=== PATIENT | female | born 1960 | race Caucasian/White ===

== ENCOUNTER → 2017-11-05 18:53 | Outpatient (CLI) | payer OTHER, SELFPAY ==
[2017-11-11 15:51] LABS: HPV Reflexed? NOT INDICATED
== END ==
PROVIDERS: Family Provider Student in an Organized Health Care Education/Training Program; PCP Student in an Organized Health Care Education/Training Program; Visit Provider Obstetrics & Gynecology
DX: Z12.4 Encounter for screening for malignant neoplasm of cervix (principal)
CPT/HCPCS: 88175; G0145

== ENCOUNTER → 2017-11-12 11:10 | Outpatient (CLI) | payer OTHER, SELFPAY ==
--- NOTE | 2017-11-12 11:11 | HPBD_ITS ---
STUDY: DUAL ENERGY X-RAY ABSORPTIOMETRY / DXA REASON FOR EXAM: Female, 57 years old. The patient is postmenopausal. History of breast cancer. No loss of height. TECHNIQUE: Bone Mineral Density (BMD) measurements of lumbar spine and bilateral hips were obtained. COMPARISON: None. FINDINGS: Lumbar Spine (L1-L4): g/cm2 (1.217) / T-score (0.3) / Z-score (1.1) Findings are suggestive of normal bone density with a low fracture risk. Left Femur Total: g/cm2 (1.065) / T-score (0.5) / Z-score (1.1) Left Femoral Neck: g/cm2 (1.010) / T-score (-0.2) / Z-score (0.8) Right Femur Total: g/cm2 (1.028) / T-score (0.2) / Z-score (0.8) Right Femoral Neck: g/cm2 (0.919) / T-score (-0.9) / Z-score (0.2) HPBD/Dexa Bone Density Study (HP) IMPRESSION: The patient is considered normal as outlined below according to World [place] Organization (WHO) criteria with a low fracture risk. Reference Information: The T-score is the number of standard deviations above or below the standard which is normal for young adults at their peak bone mineral density. The World Health Organization (WHO) interprets the T-scores as follows: Above -1 Normal bone density Between -1 and -2.5 Osteopenia Equal to / or below -2.5 Osteoporosis As a practical clinical guideline, osteopenia may be graded as follows: Mild -1 through -1.5 Moderate -1.6 through -2.0 Severe -2.1 through -2.4 The Z-score is the number of standard deviations above or below age-matched controls. A Z-score of less than -1.5 would be considered abnormal. References: 1. NIH Osteoporosis and Related Bone Diseases http://www.osteo.org 2. International Society for Clinical Densitometry http://www.iscd.org 3. National Osteoporosis Foundation http://www.nof.org Electronically Signed: Jac Eduardo MD at 8:24 EST Tel [phone], Service support ,
== END ==
PROVIDERS: Family Provider Student in an Organized Health Care Education/Training Program; PCP Student in an Organized Health Care Education/Training Program; Visit Provider Obstetrics & Gynecology
DX: Z13.820 Encounter for screening for osteoporosis (principal); Z78.0 Asymptomatic menopausal state; Z85.3 Personal history of malignant neoplasm of breast
CPT/HCPCS: 77080

== ENCOUNTER → 2017-12-25 16:25 | Outpatient (CLI) | payer OTHER, SELFPAY ==
--- NOTE | 2017-12-25 16:27 | BI_ITS ---
MAMMOGRAPHY - BILATERAL SCREENING REASON FOR EXAM: Female, 57 years old. Routine annual screening examination. PERTINENT HISTORY: Personal history of breast cancer. Prior right lumpectomy with radiation treatment. TECHNIQUE: Digital bilateral breast gorge (3D mammographic acquisition) in the CC and MLO projections. 2-D mediolateral oblique (MLO) and craniocaudad (CC) views of both breasts were obtained. CAD: Full Field Digital Mammography with Computer Added Detection was performed. COMPARISON: Comparison is made with prior study dated December 24, 2016 and December 21, 2059 FINDINGS: Breast Composition: The breasts are heterogeneously dense, which may obscure small masses. There are no dominant masses or suspicious calcifications. Residual architecture distortion is seen in the upper outer aspect of the right breast secondary to prior lumpectomy and postsurgical scarring. This is unchanged. No new abnormality is seen. No other significant abnormalities are identified. There has been no significant change since the prior study. BI/SCREENING MAMM (CAD), BILAT IMPRESSION: Stable bilateral screening mammogram. Yearly follow-up mammogram recommended. (A) ASSESSMENT CATEGORY: BIRADS Category 2: Benign. A letter regarding these results will be sent to the patient by the facility within 30 days. Approximately 10% of breast cancers are not detected by mammography. A normal mammogram should not delay biopsy of a clinically suspicious abnormality. [id number] Electronically Signed: Jac Eduardo MD at 8:45 EDT Tel [phone], Service support ,
== END ==
PROVIDERS: Family Provider Student in an Organized Health Care Education/Training Program; PCP Student in an Organized Health Care Education/Training Program; Visit Provider Internal Medicine Hematology & Oncology
DX: Z12.31 Encounter for screening mammogram for malignant neoplasm of breast (principal)
CPT/HCPCS: 77063; 77067

== ENCOUNTER → 2018-03-30 06:02 | Outpatient (CLI) | payer OTHER, SELFPAY ==
[2018-03-30 07:15] LABS: Hematocrit 43.6 % (37-47); Hemoglobin 13.8 g/dl (12.0-15.0); Mean Corp Hgb Conc 31.7 g/gl (32-36); Mean Corpuscular Hgb 28.5 pg (27.0-32.0); Mean Corpuscular Volume 90.1 fL (81-99); Platelet Count 174 K/mm3 (150-450); RBC Distribution Width CV 13.5 % (11.6-14.6); RBC Distribution Width SD 44.5 fl (35.1-43.9); Red Blood Count 4.84 M/mm3 (4.2-5.4); White Blood Count 5.3 K/mm3 (4.4-11.0)
[2018-03-30 07:19] LABS: Scan Indicated on CBC? Y/N NO
[2018-03-30 07:40] LABS: ALB/GLOB Ratio 1.1 RATIO (0.9-2.4); AST(SGOT) 20 U/L (15-37); Alanine Aminotransfer ALT/SGPT 36 U/L (13-56); Albumin, Serum 3.9 g/dL (3.2-5.0); Alkaline Phosphatase 83 U/L (45-117); Anion Gap 6 (5-15); BUN 13 mg/dL (7-18); BUN/Creat Ratio 16.1 RATIO (10-20); Calcium,Total 8.4 mg/dL (8.5-10.1); Chloride 107 mmol/L (98-107); Cholesterol 176 mg/dL (200); Creatinine, Serum 0.81 mg/dL (0.55-1.02); EST Glomerular Filtration Rate 78 mL/min (>60); Est Glom Filt Rate - Afr Amer 94 mL/min (>60); Globulin 3.4 g/dL (2.2-4.2); Glucose 89 mg/dL (74-106); High Density Lipoprotein 72 mg/dL; Potassium 4.2 mmol/L (3.5-5.1); Protein, Total 7.3 g/dL (6.4-8.2); Sodium Level 141 mmol/L (136-145); T4 Free Direct 0.98 ng/dL (0.76-1.46); Thyroid Stim Hormone (TSH) 1.53 uIU/mL (0.358-3.74); Triglycerides 63 mg/dL; Very Low Density Lipoprotein 13 mg/dL (5-40)
[2018-03-30 09:54] LABS: T3 Total - Triiodothyronine 1.01 ng/mL (0.6-1.81)
== END ==
PROVIDERS: Family Provider Student in an Organized Health Care Education/Training Program; PCP Student in an Organized Health Care Education/Training Program; Visit Provider Student in an Organized Health Care Education/Training Program
DX: Z00.00 Encounter for general adult medical examination without abnormal findings (principal)
CPT/HCPCS: 36415; 80053; 80061; 84439; 84443; 84480; 85027

== ENCOUNTER → 2018-07-09 08:21 | Outpatient (CLI) | payer OTHER, SELFPAY ==
[2018-07-09 08:44] LABS: Absolute Lymphocyte Count 2.04 X10^3/ul (0.83-4.51); Absolute Neutrophil Count 3.7 X10^3/uL (2.0-7.7); Basophil# 0.03 X10^3/uL; Basophil% 0.5 % (0-1); Eosinophil# 0.05 X10^3/uL; Eosinophils% 0.8 % (0-5); Hematocrit 43.5 % (37-47); Lymphocyte # 2.04 X10^3/ul (4.0); Mean Corp Hgb Conc 32.2 g/gl (32-36); Mean Corpuscular Hgb 29.2 pg (27.0-32.0); Mean Corpuscular Volume 90.8 fL (81-99); Mean Platelet Vol. 10.2 fl (6.2-12.0); Monocyte# 0.31 X10^3/uL; Neutrophil # 3.74 X10^3/uL (2.7-7.7); Neutrophil % 60.5 % (47-70); POSITIVE COUNT NO; POSITIVE DIFFERENTIAL NO; POSITIVE MORPHOLOGY NO; Platelet Count 190 K/mm3 (150-450); RBC Distribution Width CV 13.3 % (11.6-14.6); RBC Distribution Width SD 43.5 fl (35.1-43.9); Red Blood Count 4.79 M/mm3 (4.2-5.4); White Blood Count 6.2 K/mm3 (4.4-11.0)
[2018-07-09 08:59] LABS: ALB/GLOB Ratio 1.3 RATIO (0.9-2.4); AST(SGOT) 18 U/L (15-37); Alanine Aminotransfer ALT/SGPT 32 U/L (13-56); Albumin, Serum 4.1 g/dL (3.2-5.0); Alkaline Phosphatase 81 U/L (45-117); Anion Gap 5 (5-15); BUN 15 mg/dL (7-18); BUN/Creat Ratio 14.9 RATIO (10-20); Calcium,Total 8.8 mg/dL (8.5-10.1); Chloride 109 mmol/L (98-107); Creatinine, Serum 1.01 mg/dL (0.55-1.02); EST Glomerular Filtration Rate 60 mL/min (>60); Est Glom Filt Rate - Afr Amer 73 mL/min (>60); Globulin 3.2 g/dL (2.2-4.2); Glucose 79 mg/dL (74-106); Potassium 4.2 mmol/L (3.5-5.1); Protein, Total 7.3 g/dL (6.4-8.2); Sodium Level 144 mmol/L (136-145)
== END ==
PROVIDERS: Surgery; Family Provider Student in an Organized Health Care Education/Training Program; PCP Student in an Organized Health Care Education/Training Program; Referring Provider Surgery; Visit Provider Surgery
DX: R10.9 Unspecified abdominal pain (principal)
CPT/HCPCS: 36415; 80053; 85025

== ENCOUNTER → 2018-07-10 08:30 | Outpatient (CLI) | payer OTHER, SELFPAY ==
--- NOTE | 2018-07-10 08:31 | US_ITS ---
STUDY: ABDOMINAL ULTRASOUND - RIGHT UPPER QUADRANT REASON FOR VISIT: Female, 58 years old. Abdominal pain. TECHNIQUE: Ultrasound evaluation of the right upper quadrant was performed with real-time and static haas-scale imaging. TECHNICAL QUALITY: Adequate. COMPARISON: Comparison is made with prior sonogram dated January 02, 2015. FINDINGS: Liver: The liver measures 14.9 cm. There is increased echogenicity consistent with fatty infiltration. The bile ducts are within normal limits. There is hepatic color flow. The direction of portal flow is hepatopetal. There is a 1.7 cm x 2 cm x 0.9 cm cyst in the left lobe of the liver with low level echoes within it. This may represent either hemorrhagic cyst or a cyst filled with a proteinaceous material. Gallbladder: Normal distended gallbladder. The gallbladder wall measures 2.7 mm. There is a negative sonographic Moses's sign. There is no pericholecystic fluid. There are no gallstones. Common Bile Duct (C.B.D.): The common bile duct measures 3.6 mm. Pancreas: Normal size of the head, body and tail of the pancreas. There is normal echogenicity of the pancreas. There is no demonstrated pancreatic mass or cyst. Right Kidney: Normal size of the right kidney. The right kidney measures 9.8 cm x 4.9 cm x 4.3 cm. Normal renal cortex. The right cortex measures 1.4 cm. There is no demonstrated renal mass or cyst. There is no right hydronephrosis. US/Gallbladder IMPRESSION: Fatty infiltration of the liver. 1.7 cm x 2 cm x 0.9 cm cyst with low-level echoes in the left lobe of the liver. Electronically Signed: Jac Eduardo MD at 10:20 EDT Tel [phone], Service support ,
== END ==
PROVIDERS: Family Provider Student in an Organized Health Care Education/Training Program; PCP Student in an Organized Health Care Education/Training Program; Referring Provider Surgery; Visit Provider Surgery
DX: R10.9 Unspecified abdominal pain (principal)
CPT/HCPCS: 76705

== ENCOUNTER → 2018-09-14 08:58 | Outpatient (CLI) | payer OTHER, SELFPAY ==
--- NOTE | 2018-09-14 09:02 | MRI_ITS ---
STUDY: MRI BRAIN WITH AND WITHOUT CONTRAST REASON FOR EXAM: Female, 58 years old. Facial weakness. Left tongue numbness. Diagnosed with shingles in left ear on 09/10/2018. TECHNIQUE: Standardized multiplanar fat and water weighted pulse sequences were obtained. 7 ml of Gadavist contrast material was administered intravenously for the contrast portion of the examination. COMPARISON: None. FINDINGS: No restricted diffusion to suspect acute or subacute ischemic infarct. Normal size of the ventricles and extra-axial spaces for the patient's age. Nonspecific T2 FLAIR hyperintensity foci in both frontal opercula (series 6, image 14). Normal remaining white matter of both cerebral hemispheres. Normal bilateral basal ganglia. Normal thalami. There is no extra-axial fluid accumulation. Normal flow voids within the major intracranial circulation suggesting patency by spin echo criteria. Normal venous enhancement. There is no enhancing intra-axial or extra-axial abnormality. Normal sella turcica, pituitary gland, infundibular stalk, optic chiasm and hypothalamus. Normal tectal plate and pineal gland. Normal midbrain, rodrigue and medulla. Normal cerebellum. Normal basal cisterns. Normal bilateral temporal bones. Normal bilateral internal auditory canals. No demonstrated orbital abnormality, within the constraints of a routine brain study. Normal visualized paranasal sinuses. Normal calvarium and skull base. Normal visualized soft tissue structures. Normal visualized upper cervical spine. MRI/Brain W/WO Contrast IMPRESSION: 1. No MRI evidence of acute or subacute ischemic infarct. 2. Normal MRI of the internal auditory canals with and without contrast. 3. Nonspecific T2 FLAIR hyperintensity foci in both frontal opercula. Possibilities include migraine-related changes, reversible vasoconstrictive syndrome, microvascular disease and vasculitis. 4. No enhancing lesions extra-axially and intraaxially. Electronically Signed: Bean Levi MD at 10:13 EST , Service support ,
== END ==
PROVIDERS: Family Provider Student in an Organized Health Care Education/Training Program; PCP Student in an Organized Health Care Education/Training Program; Referring Provider Otolaryngology; Visit Provider Otolaryngology
DX: R29.810 Facial weakness (principal); R20.2 Paresthesia of skin
CPT/HCPCS: 70553; A9585

== ENCOUNTER → 2018-09-24 10:06 | Outpatient (CLI) | payer OTHER, SELFPAY ==
[2018-09-24 10:53] LABS: Anion Gap 10 (5-15); BUN 15 mg/dL (7-18); BUN/Creat Ratio 15.9 RATIO (10-20); Calcium,Total 8.4 mg/dL (8.5-10.1); Chloride 104 mmol/L (98-107); Creatinine, Serum 0.94 mg/dL (0.55-1.02); EST Glomerular Filtration Rate 65 mL/min (>60); Est Glom Filt Rate - Afr Amer 79 mL/min (>60); Glucose 108 mg/dL (74-106); Magnesium 2.2 mg/dL (1.6-2.6); Potassium 3.4 mmol/L (3.5-5.1); Sodium Level 138 mmol/L (136-145)
== END ==
PROVIDERS: Family Provider Student in an Organized Health Care Education/Training Program; PCP Student in an Organized Health Care Education/Training Program; Visit Provider Otolaryngology
DX: R11.10 Vomiting, unspecified (principal)
CPT/HCPCS: 36415; 80048; 83735

== ENCOUNTER 2018-10-17 18:30 | Observation (INO) | payer OTHER, SELFPAY ==
[2018-10-17 18:31] VITALS: BP 148/75; PULSE 81; RESP 16; TEMP 36.6; O2SAT 99; BMI 23.8
--- NOTE | 2018-10-17 20:00 | CT_ITS ---
STUDY: CT BRAIN WITHOUT CONTRAST REASON FOR EXAM: Female, 58 years old. Dizziness RADIATION DOSAGE (If Supplied By Facility): CTDIvol = ( 44.99 ) mGy, DLP = ( 762.36 ) mGycm TECHNIQUE: Transaxial CT imaging of the brain was performed without administration of intravenous contrast material. Individualized dose optimization techniques were used for this CT. COMPARISON: None. FINDINGS: Normal soft tissue structures. Normal calvarium. There is mild bifrontal haas matter atrophy. The lateral ventricles are normal in size and are symmetric. The third and fourth ventricles are midline. Normal white matter tracts of the cerebral hemispheres. Normal basal ganglia and thalami. Normal brainstem. Normal cerebellum. There is no intracranial hemorrhage. There are no findings of an acute ischemic infarction. Normal visualized paranasal sinuses. CT/Brain/Head without Contrast IMPRESSION: Mild bifrontal haas matter atrophy. There is no intracranial hemorrhage or evidence of acute infarct. Electronically Signed: Sky Longoria MD at 22:06 EST , Service support ,
[2018-10-17] MEDS: MethylPREDNISolone 125 MG/2 ML Vial IV (20:21)
[2018-10-17] MEDS: 0.9% Normal Saline 1,000 ML 999 ML IV (20:21)
[2018-10-17] MEDS: LORazepam 2 MG/ML Syringe 1 MG IV ×2 (20:21→23:00)
[2018-10-17 20:26] LABS: Absolute Lymphocyte Count 1.18 X10^3/ul (0.83-4.51); Absolute Neutrophil Count 9.1 X10^3/uL (2.0-7.7); Basophil# 0.04 X10^3/uL; Basophil% 0.4 % (0-1); Eosinophil# 0.03 X10^3/uL; Eosinophils% 0.3 % (0-5); Hemoglobin 15.4 g/dl (12.0-15.0); Lymphocyte # 1.18 X10^3/ul (4.0); Mean Corp Hgb Conc 32.8 g/gl (32-36); Mean Corpuscular Hgb 29.4 pg (27.0-32.0); Mean Corpuscular Volume 89.9 fL (81-99); Mean Platelet Vol. 10.3 fl (6.2-12.0); Monocyte# 0.35 X10^3/uL; Monocyte% 3.3 % (0-10); Neutrophil # 9.11 X10^3/uL (2.7-7.7); Neutrophil % 84.6 % (47-70); POSITIVE COUNT NO; POSITIVE DIFFERENTIAL NO; POSITIVE MORPHOLOGY NO; Platelet Count 229 K/mm3 (150-450); RBC Distribution Width CV 13.6 % (11.6-14.6); RBC Distribution Width SD 44.5 fl (35.1-43.9); Red Blood Count 5.23 M/mm3 (4.2-5.4); White Blood Count 10.8 K/mm3 (4.4-11.0)
[2018-10-17 20:41] LABS: Anion Gap 8 (5-15); BUN 11 mg/dL (7-18); BUN/Creat Ratio 12.6 RATIO (10-20); Chloride 105 mmol/L (98-107); Creatinine, Serum 0.87 mg/dL (0.55-1.02); EST Glomerular Filtration Rate 72 mL/min (>60); Est Glom Filt Rate - Afr Amer 87 mL/min (>60); Estimated Creatinine Clearance 67.59 ml/min; Glucose 113 mg/dL (74-106); Potassium 3.9 mmol/L (3.5-5.1); Sodium Level 140 mmol/L (136-145)
[2018-10-17 21:35] VITALS: BP 116/71; PULSE 82; RESP 15; O2SAT 94
--- NOTE | 2018-10-17 22:40 | HP.PCM_ITS ---
History of Present Illness Date of Admission: 10/17/18 Chief Complaint: vertigo The patient is a 58 year old F with a PMH of recurrent vertigo, Heath Knox syndrome, hypothyroidism and remote history of breast cancer s/p lumpectomy. She was admitted with a complaint of vertigo started this evening. Vertigo was worse with movement and she does state nausea and vomiting. Of note, patient has been having recurrent vertigo since April 2018 which did not resolve with meclizine. 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 She states at the time, she saw the ENT surgeon and was told that she had some decreased hearing in her right ear. She cannot see whether her hearing has worsened as it sounds the same to her. She denied any fever or chills, any blurred vision, any abnormal movement of her eyes that she has noticed, any chest pain, any abdominal pain, any tingling in her extremities, any diarrhea or vomiting. She did complain of frontal headache which is not new for her. She is being admitted to be managed for recurrent vertigo. [] Past Medical History Past Medical History (Chronic Problems): Chronic Problems (Last Reviewed 12/31/17 @ 16:05 by Blanche Hanks) Cancer of right female breast (Chronic) Medical History: Medical History (Last Reviewed 12/31/17 @ 16:05 by Blanche Hanks) Splenic cyst (Acute) D73.4 Multinodular thyroid (Acute) E04.2 Cancer of right female breast (Chronic) C50.911 D&C History of breast cancer Z85.3 History of hysterectomy Z90.710 Mitral valve prolapse I34.1 Multinodular goiter E04.2 Allergies No Known Allergies Allergy (Verified 10/17/18 18:31) Home Medications: Ambulatory Orders Medication Instructions Recorded Levothyroxine [Synthroid] 25 mcg PO DAILY 12/11/16 Calcium Carbonate [Calcium] 600 mg PO DAILY 12/30/16 Cholecalciferol (Vitamin D3) 1,000 unit PO DAILY 12/30/16 [Vitamin D3] Surgical History: Surgical History (Last Reviewed 12/31/17 @ 16:05 by Blanche Hanks) History of lumpectomy of right breast Z98.890 History of partial mastectomy Z90.10 2006 PARTICAL/MASTECTOMY WITH SENTINEL LYMPH NODE BIOPSY Surgical History: - - right breast lumpectomy-2006 Psychiatric History: No pertinent psych hx Lives: Spouse/ Significant Other Smoking Status: Never smoker - *Family History Maternal Family History: Family History (Last Reviewed 12/31/17 @ 16:05 by Blanche Hanks) Father Family history of hypertension Cancer Grandmother Cancer CVA (cerebral vascular accident) Other Family history of cancer Review of Systems Constitutional: Reports: Malaise, Weakness. Denies: Chills, Fever, Weight Change, Fatigue HEENT: Reports: Head Aches. Denies: Sinus Congestion, Sinus Drainage Cardiovascular: Denies: Chest Pain, Palpitations Respiratory: Denies: Cough, Shortness of breath at rest, Sputum production Gastrointestinal: Denies: Abdominal Pain, Nausea, Vomiting Genitourinary: Denies: Dysuria Musculoskeletal: Denies: Joint Pain, Joint Tenderness Skin: Denies: Rash, Wounds Neurological: Reports: Balance problems - due to vertigo, Headaches. Denies: Blurred vision, Double vision, Change in Speech, Slurred speech, Confusion, Numbness, Tingling Psychiatric: Denies: Anxiety, Depression, Homicidal Ideations, Suicidal Ideations Hematologic/ Lymphatic: Denies: Easy Bruising, Easy Bleeding VTE Information - Inpt Only VTE Present on Admission: No VTE Pharm Prophylaxis ordered?: Yes - Physical Exam General: Alert, Oriented x3, Cooperative, No apparent distress HEENT: Atraumatic, PERRLA, EOMI, Normocephalic Oral: Dry Mucosa Neck: Supple, No JVD, Negative Carotid Bruits Lungs: Clear to auscultation, Normal air movement, No rhonchi, No wheeze, No rales Cardiovascular: Regular rate, Regular Rhythm, Normal S1, Normal S2, No murmurs Abdomen: Bowel Sounds Present, Soft, Non Tender, Non-Distended, No Hepato- splenomegaly Extremities: No clubbing, No cyanosis, No edema, Capillary Refill Less than 3 Seconds Skin: No rashes, No breakdown Musculoskeletal: No Tenderness to Palpation of Joints or Extremities Lymphatic: No Cervical, Supraclavicular, or Inguinal Adenopathy Neurological: Cranial nerves II-XII grossly intact, Deep Tendon Reflexes 2+/4 an d Symmetrical, Neuro grossly intact, Sensory exam intact to light touch and pain, Coordination normal, - - no nystagmus; got very dizzy just with sitting up. Tomi zamarripadayne not attempted o/a of severe dizziness. Psych/Mental Status: Normal Affect, Appropriate, Alert and oriented to time, place, person, mood and affect Vital Signs Temp Pulse Resp BP Pulse Ox 97.9 F 82 15 116/71 94 10/17/18 18:31 10/17/18 21:35 10/17/18 21:35 10/17/18 21:35 10/17/18 21:35 Oxygen Delivery Method Room Air Weight: 148 lb Body Mass Index (BMI) 23.8 Laboratory Tests Past 24 Hrs 10/17/18 10/17/18 20:05 20:05 WBC 10.8 RBC 5.23 Hgb 15.4 H Hct 47.0 MCV 89.9 MCH 29.4 MCHC 32.8 RDW 13.6 RDW Differential 44.5 H Plt Count 229 MPV 10.3 Immature Gran % (Auto) 0.400 Neut % (Auto) 84.6 H Lymph % (Auto) 11.0 L [place] % (Auto) 3.3 Eos % (Auto) 0.3 Baso % (Auto) 0.4 Absolute Neuts (auto) 9.1 H Absolute Lymphs (auto) 1.18 Total Counted Not Reportable Sodium 140 Potassium 3.9 Chloride 105 Carbon Dioxide 27.0 Anion Gap 8 BUN 11 Creatinine 0.87 Estim Creat Clear Calc 67.59 Est GFR (MDRD) Af Amer 87 Est GFR (MDRD) Non-Af 72 BUN/Creatinine Ratio 12.6 Glucose 113 H Calcium 9.[address] 10/17/18 20:00 IMPRESSION: Mild bifrontal haas matter atrophy. There is no intracranial hemorrhage or evidence of acute infarct. Electronically Signed: Sky Longoria MD at 22:06 EST , Service support , Assessment/Plan All Active Problems (Last Reviewed 12/31/17 @ 16:05 by Blanche Hanks) Splenic cyst (Acute) Multinodular thyroid (Acute) 58 y/o female admitted with a complaint of vertigo 1. Recurrent vertigo due to possible BPPV vs vestibular neuritis * recurrent dizziness since April 2018 * recently had [place] Knox syndrome * brain CT was negative. * had MRI done on 09/14/18 which showed no MRI evidence of acute or subacute ischemic infarct, normal MRI of internal auditory canal with and without contrast and nonspecific T2 FLAIR hyperintensity foci in both frontal opercular with possibilities including migraine related changes, reversible vasoconstrictive syndrome, microvascular disease and vasculitis. No enhancing lesions extra-axially or intra-axially. * admit to PCU with telemetry * neurology consult * will defer further imaging as she recently had MRI * IV zofran for nausea * PT/OT consult * PO meclizine * 2. Hypothyroidism: on synthroid DVT prophylaxis: heparin Code Visit OBSV E&M: [id number] Initial observation care L3
--- NOTE | 2018-10-17 22:45 | ED.DCSUM_ITS ---
- ER Visit Summary Date of Service: 10/17/18 Chief Complaint: Dizziness History of Present Illness: The patient is a 58 F with dizziness that started yesterday around 5 PM when she was leaving work. She was eating celery when the symptoms started. Symptoms were worse by standing, walking, and moving. She tried 3 doses of meclizine over the past 24 hours but they are not helping. It is associated with nausea and vomiting as well as bilateral tinnitus. Patient had Heath Knox and shingles in her left ear canal. She was treated by ENT and had an MRI in August 2018. She has had vertigo in the remote past but never this bad. Physical Examination: Afebrile and vital signs unremarkable. HEENT exam unremarkable. Cranial nerves grossly intact. Heart regular. Lungs clear. Skin appears normal without rash. No focal or lateralizing neurologic abnormalities. Test Results: CBC and BMP unremarkable. CT brain showed mild atrophy but nothing acute. Emergency Department Course and Treatment: Patient was treated with Ativan and fluids. Patient's workup was unremarkable. On reevaluation, she had continued symptoms. They were very severe and she was unable to ambulate. She was treated with additional Ativan and will be admitted for inpatient care. Treatment Plan: As above Disposition: Admission Impression: 1. Vertigo This note was generated with [employer] dictation software. It may contain incorrect words, spelling, and punctuation that were not noted in review of the chart prior to signing ED Disposition - Plan for ED Patient: Referrals: Richie Montgomery DO [Primary Care Provider] -
[2018-10-17 23:01] VITALS: BP 117/74; PULSE 82; RESP 15; O2SAT 94
[2018-10-17 23:28] VITALS: BMI 23.7
[2018-10-17 23:32] VITALS: BMI 23.7
[2018-10-17 23:45] VITALS: BP 102/65; PULSE 83; RESP 18; TEMP 36.7; O2SAT 95
[2018-10-17] MEDS: 0.9% Normal Saline 1,000 ML 100 ML IV (23:58)
[2018-10-18] VITALS (8 sets, daily range): BP systolic 100–124; BP diastolic 66–81; PULSE 72–95; RESP 16–18; TEMP 37.2–37.3; O2SAT 95–100
[2018-10-18] MEDS: Levothyroxine 25 MCG TABLET PO (05:59)
[2018-10-18 06:38] LABS: Absolute Lymphocyte Count 0.96 X10^3/ul (0.83-4.51); Hematocrit 41.2 % (37-47); Hemoglobin 14.2 g/dl (12.0-15.0); Lymphocyte # 0.96 X10^3/ul (4.0); Lymphocyte % 13.7 % (19-41); Mean Corp Hgb Conc 34.5 g/gl (32-36); Mean Corpuscular Hgb 30.7 pg (27.0-32.0); Mean Corpuscular Volume 89.2 fL (81-99); Mean Platelet Vol. 10.8 fl (6.2-12.0); Monocyte# 0.05 X10^3/uL; Monocyte% 0.7 % (0-10); Neutrophil # 5.96 X10^3/uL (2.7-7.7); Neutrophil % 85.3 % (47-70); Platelet Count 221 K/mm3 (150-450); RBC Distribution Width CV 13.5 % (11.6-14.6); RBC Distribution Width SD 43.7 fl (35.1-43.9); Red Blood Count 4.62 M/mm3 (4.2-5.4)
[2018-10-18 06:39] LABS: POSITIVE COUNT NO; POSITIVE DIFFERENTIAL NO; POSITIVE MORPHOLOGY NO
[2018-10-18 06:58] LABS: Anion Gap 10 (5-15); BUN 10 mg/dL (7-18); Calcium,Total 8.3 mg/dL (8.5-10.1); Chloride 111 mmol/L (98-107); Creatinine, Serum 0.71 mg/dL (0.55-1.02); EST Glomerular Filtration Rate 90 mL/min (>60); Est Glom Filt Rate - Afr Amer 109 mL/min (>60); Estimated Creatinine Clearance 82.83 ml/min; Glucose 118 mg/dL (74-106); Potassium 4.2 mmol/L (3.5-5.1); Sodium Level 143 mmol/L (136-145)
[2018-10-18] MEDS: Acetaminophen 325 MG Tablet 650 MG PO (07:27)
[2018-10-18] MEDS: 0.9% Normal Saline 1,000 ML 100 ML IV (07:28)
--- NOTE | 2018-10-18 09:04 | MRI_ITS ---
STUDY: MRI BRAIN WITH AND WITHOUT CONTRAST REASON FOR EXAM: Female, 58 years old. Vertigo with history of breast cancer. TECHNIQUE: Standardized multiplanar fat and water weighted pulse sequences were obtained. 6 ml of Gadavist contrast material was administered intravenously for the contrast portion of the examination. COMPARISON: None. FINDINGS: Normal size of the ventricles and extra-axial spaces for the patient's age. Normal white matter tracts of the supratentorial brain. There is no evidence for recent intracranial ischemia or other cause of cytotoxic edema on diffusion weighted imaging (DWI). Normal T2* images of the brain without demonstrated susceptibility artifact. There is no demonstrated hemosiderin stain. Normal bilateral basal ganglia. Normal thalami. There is no extra-axial fluid accumulation. Normal flow voids within the major intracranial circulation suggesting patency by spin echo criteria. Normal venous enhancement. There is no enhancing intra-axial or extra-axial abnormality. Normal sella turcica, pituitary gland, infundibular stalk, optic chiasm and hypothalamus. Normal tectal plate and pineal gland. Normal midbrain, rodrigue and medulla. Normal cerebellum. Normal basal cisterns. Normal bilateral temporal bones. Normal bilateral internal auditory canals. No demonstrated orbital abnormality, within the constraints of a routine brain study. Normal visualized paranasal sinuses. Normal calvarium and skull base. Normal visualized soft tissue structures. Normal visualized upper cervical spine. MRI/Brain W/WO Contrast IMPRESSION: No evidence of acute intracranial bleed, mass or ischemia. No evidence of abnormal enhancement Electronically Signed: Christophe Rosado DO at 14:50 EST , Service support ,
--- NOTE | 2018-10-18 09:04 | CT_ITS ---
STUDY: CTA NECK WITH CONTRAST REASON FOR EXAM: Female, 58 years old. Dizziness. Recent shingles and [place] Knox syndrome. RADIATION DOSAGE (If Supplied By Facility): CTDIvol = ( 25.93 ) mGy, DLP = ( 1421.75 ) mGycm TECHNIQUE: CT angiography with multi-detector data acquisition was performed from the aortic arch to the skull base following intravenous administration of 100 ml of Isovue 370 contrast. MIP images were reconstructed from the axial data set. Post-processing of the angiographic images was performed, with multiplanar reformation and 3D reconstruction. Individualized dose optimization techniques were used for this CT. COMPARISON: None. FINDINGS: 4 mm nodule suggested in the left lobe of the thyroid gland on series 3 image 77. AORTIC ARCH: Normal visualized aortic arch. Normal origins of the brachiocephalic, left common carotid, and left subclavian arteries. RIGHT CAROTID ARTERIES: Normal right common carotid artery (CCA). Normal right common carotid bulb. Normal origin of the right internal carotid (ICA) artery without a hemodynamically significant stenosis. Normal visualized cervical portion of the right internal carotid artery. Normal origin of the right external carotid artery (ECA). LEFT CAROTID ARTERIES: Normal left common carotid artery (CCA). Normal left common carotid bulb. Normal origin of the left internal carotid (ICA) artery without a hemodynamically significant stenosis. Normal visualized cervical portion of the left internal carotid artery. Normal origin of the left external carotid artery (ECA). VERTEBRAL ARTERIES: Normal bilateral vertebral arteries. IMPRESSION: 1. Normal bilateral cervical carotid and vertebral arteries. 2. Possible 4 mm nodule in the left lobe of the thyroid gland. This is mentioned in report of thyroid ultrasound January 02, 2015 (films not available for comparison), as is an 8 mm nodule and 3 mm cyst on the right as well as 6 mm nodule in the isthmus. If additional imaging is clinically indicated, repeat ultrasound is advised. Electronically Signed: Júnior Copeland MD at 12:57 EST , Service support , STUDY: CTA OF THE BRAIN REASON FOR EXAM: Female, 58 years old. Dizziness. 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 RADIATION DOSAGE (If Supplied By Facility): CTDIvol = ( 25.93 ) mGy, DLP = ( 1421.75 ) mGycm TECHNIQUE: CT angiography was performed with a multi-detector CT scanner. Data acquisition was obtained from the skull base through the vertex following intravenous administration of 100 ml of Isovue-370. MIP images were reconstructed from the axial data set. Post-processing of the angiographic images was performed, with multiplanar reformation and 3D reconstruction. Individualized dose optimization techniques were used for this CT. COMPARISON: Noncontrast CT brain October 17, 2018. FINDINGS: Normal bilateral petrous carotid arteries. Normal right cavernous carotid artery with a normal supraclinoid bifurcation. Normal left cavernous carotid artery with a normal supraclinoid bifurcation. Normal A1 segment of the right anterior cerebral artery. Normal A1 segment of the left anterior cerebral artery. Normal intact anterior communicating artery (ACOM). Normal bilateral A2 segments of the anterior cerebral arteries. Normal M1 and M2 segments of the right middle cerebral artery, with a normal M1 bifurcation. Normal M1 and M2 segments of the left middle cerebral artery, with a normal M1 bifurcation. There is non-visualization of the right posterior communicating artery (PCOM). There is non-visualization of the left posterior communicating artery (PCOM). Normal bilateral vertebral arteries. Normal basilar artery with a normal basilar bifurcation. The visualized bilateral superior cerebellar (SCA) arteries are normal. Normal P1, P2 and visualized P3 segments bilateral of the posterior cerebral arteries. There is no demonstrated aneurysm of the [place]. There is no demonstrated abnormality of the visualized brain. CT/CTA Head W/WO Contrast IMPRESSION: Normal [place] without a demonstrated aneurysm or hemodynamically significant stenosis. Electronically Signed: Júnior Copeland MD at 13:00 EST , Service support ,
--- NOTE | 2018-10-18 09:04 | CT_ITS ---
STUDY: CTA NECK WITH CONTRAST REASON FOR EXAM: Female, 58 years old. Dizziness. 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 RADIATION DOSAGE (If Supplied By Facility): CTDIvol = ( 25.93 ) mGy, DLP = ( 1421.75 ) mGycm TECHNIQUE: CT angiography with multi-detector data acquisition was performed from the aortic arch to the skull base following intravenous administration of 100 ml of Isovue 370 contrast. MIP images were reconstructed from the axial data set. Post-processing of the angiographic images was performed, with multiplanar reformation and 3D reconstruction. Individualized dose optimization techniques were used for this CT. COMPARISON: None. FINDINGS: 4 mm nodule suggested in the left lobe of the thyroid gland on series 3 image 77. AORTIC ARCH: Normal visualized aortic arch. Normal origins of the brachiocephalic, left common carotid, and left subclavian arteries. RIGHT CAROTID ARTERIES: Normal right common carotid artery (CCA). Normal right common carotid bulb. Normal origin of the right internal carotid (ICA) artery without a hemodynamically significant stenosis. Normal visualized cervical portion of the right internal carotid artery. Normal origin of the right external carotid artery (ECA). LEFT CAROTID ARTERIES: Normal left common carotid artery (CCA). Normal left common carotid bulb. Normal origin of the left internal carotid (ICA) artery without a hemodynamically significant stenosis. Normal visualized cervical portion of the left internal carotid artery. Normal origin of the left external carotid artery (ECA). VERTEBRAL ARTERIES: Normal bilateral vertebral arteries. IMPRESSION: 1. Normal bilateral cervical carotid and vertebral arteries. 2. Possible 4 mm nodule in the left lobe of the thyroid gland. This is mentioned in report of thyroid ultrasound January 02, 2015 (films not available for comparison), as is an 8 mm nodule and 3 mm cyst on the right as well as 6 mm nodule in the isthmus. If additional imaging is clinically indicated, repeat ultrasound is advised. Electronically Signed: Júnior Copeland MD at 12:57 EST , Service support , STUDY: CTA OF THE BRAIN REASON FOR EXAM: Female, 58 years old. Dizziness. 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 RADIATION DOSAGE (If Supplied By Facility): CTDIvol = ( 25.93 ) mGy, DLP = ( 1421.75 ) mGycm TECHNIQUE: CT angiography was performed with a multi-detector CT scanner. Data acquisition was obtained from the skull base through the vertex following intravenous administration of 100 ml of Isovue-370. MIP images were reconstructed from the axial data set. Post-processing of the angiographic images was performed, with multiplanar reformation and 3D reconstruction. Individualized dose optimization techniques were used for this CT. COMPARISON: Noncontrast CT brain October 17, 2018. FINDINGS: Normal bilateral petrous carotid arteries. Normal right cavernous carotid artery with a normal supraclinoid bifurcation. Normal left cavernous carotid artery with a normal supraclinoid bifurcation. Normal A1 segment of the right anterior cerebral artery. Normal A1 segment of the left anterior cerebral artery. Normal intact anterior communicating artery (ACOM). Normal bilateral A2 segments of the anterior cerebral arteries. Normal M1 and M2 segments of the right middle cerebral artery, with a normal M1 bifurcation. Normal M1 and M2 segments of the left middle cerebral artery, with a normal M1 bifurcation. There is non-visualization of the right posterior communicating artery (PCOM). There is non-visualization of the left posterior communicating artery (PCOM). Normal bilateral vertebral arteries. Normal basilar artery with a normal basilar bifurcation. The visualized bilateral superior cerebellar (SCA) arteries are normal. Normal P1, P2 and visualized P3 segments bilateral of the posterior cerebral arteries. There is no demonstrated aneurysm of the [place] of [place]. There is no demonstrated abnormality of the visualized brain. CT/CTA Neck W/WO Contrast IMPRESSION: Normal [place] of [place] without a demonstrated aneurysm or hemodynamically significant stenosis. Electronically Signed: Júnior Copeland MD at 13:00 EST , Service support ,
[2018-10-18 09:28] LABS: CRP < 2.90 mg/L (0.0-3.0)
[2018-10-18 09:35] LABS: Erythrocyte Sedimentation Rate 4 mm/hr (0-30)
--- NOTE | 2018-10-18 09:42 | PCM.CONS.GEN ---
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 Per patient she has had history of vertigo starting about a year ago, then it stopped around fall last year and then later patient had shingles in August 2018 for which she was treated with steroids and antivirals per patient, then had an episode of vertigo and dizziness with room spinning sensation that started on 10/16/2018, associated with nausea and vomiting and wobbliness, patient had to hold onto things to walk, dizziness would get worse if she moved or had any head movement. She had to lay down with her eyes closed per patient and when the dizziness did not go away for more than 24 hours she decided to come to the ED for further evaluation. She had an MRI brain with and without contrast done on 09/14/2018 which was reported to show nothing acute, and showed some nonspecific hyperintense foci in the bilateral frontal opercular. At present patient denies any new onset focal motor weakness sensory loss, visual disturbances, speech disturbances. Patient complains of mild generalized headache but denies any vision loss, jaw claudication, temporal tenderness. Per patient her dizziness has improved this morning. [] Past Medical History Past Medical History (Chronic Problems): Chronic Problems (Last Reviewed 12/31/17 @ 16:05 by Blanche Hanks) Cancer of right female breast (Chronic) Medical History: Medical History (Last Reviewed 12/31/17 @ 16:05 by Blanche Hanks) Splenic cyst (Acute) D73.4 Multinodular thyroid (Acute) E04.2 Cancer of right female breast (Chronic) C50.911 D&C History of breast cancer Z85.3 History of hysterectomy Z90.710 Mitral valve prolapse I34.1 Multinodular goiter E04.2 Allergies No Known Allergies Allergy (Verified 10/17/18 18:31) Home Medications: Ambulatory Orders Medication Instructions Recorded Levothyroxine [Synthroid] 25 mcg PO DAILY 12/11/16 Calcium Carbonate [Calcium] 600 mg PO DAILY 12/30/16 Cholecalciferol (Vitamin D3) 1,000 unit PO DAILY 12/30/16 [Vitamin D3] Surgical History: Surgical History (Last Reviewed 12/31/17 @ 16:05 by Blanche Hanks) History of lumpectomy of right breast Z98.890 History of partial mastectomy Z90.10 2006 PARTICAL/MASTECTOMY WITH SENTINEL LYMPH NODE BIOPSY Surgical History: - - right breast lumpectomy-2006 Psychiatric History: No pertinent psych hx Lives: Spouse/ Significant Other Smoking Status: Never smoker Alcohol: None Drugs: None - *Family History Maternal Family History: Family History (Last Reviewed 12/31/17 @ 16:05 by Blanche Hanks) Father Family history of hypertension Cancer Grandmother Cancer CVA (cerebral vascular accident) Other Family history of cancer Review of Systems Constitutional: Reports: - - Complete ROS negative symptoms documented in HPI Patient Problems: Active and Suspected Problems (Last Reviewed 12/31/17 @ 16:05 by Blanche Hanks) Dizziness (Acute) - Physical Exam General: Alert HEENT: Normocephalic Neck: Supple Lungs: Normal air movement Cardiovascular: Normal S1, Normal S2 Abdomen: Bowel Sounds Present Extremities: No cyanosis Neurological: - - Conscious, alert, CN?2-12 grossly intact, no nystagmus, power 5/5 both UE/LE no sensory loss, no cerebellar signs, gait deferred, reflexes + B/L B/S/T/K/A. Psych/Mental Status: Normal Affect Vital Signs Temp Pulse Resp BP Pulse Ox 99.2 F H 95 18 100/66 95 10/18/18 05:45 10/18/18 07:00 10/18/18 05:45 10/18/18 05:45 10/18/18 05:45 Oxygen Delivery Method Room Air Weight: 66.7 kg Body Mass Index (BMI) 23.7 Intake and Output for Last 24 Hours 10/16/18 10/17/18 10/18/18 23:59 23:59 23:59 Intake Total 747 / 747 Balance 747 / 747 Laboratory Tests Past 24 Hrs 10/17/18 10/17/18 10/18/18 20:05 20:05 05:46 WBC 10.8 7.0 RBC 5.23 4.62 Hgb 15.4 H 14.2 Hct 47.0 41.2 MCV 89.9 89.2 MCH 29.4 30.7 MCHC 32.8 34.5 RDW 13.6 13.5 RDW Differential 44.5 H 43.7 Plt Count 229 221 MPV 10.3 10.8 Immature Gran % (Auto) 0.400 0.300 Neut % (Auto) 84.6 H 85.3 H Lymph % (Auto) 11.0 L 13.7 L Starr % (Auto) 3.3 0.7 Eos % (Auto) 0.3 0.0 Baso % (Auto) 0.4 0.0 Absolute Neuts (auto) 9.1 H 6.0 Absolute Lymphs (auto) 1.18 0.96 Total Counted Not Reportable Not Reportable ESR Sodium 140 Potassium 3.9 Chloride 105 Carbon Dioxide 27.0 Anion Gap 8 BUN 11 Creatinine 0.87 Estim Creat Clear Calc 67.59 Est GFR (MDRD) Af Amer 87 Est GFR (MDRD) Non-Af 72 BUN/Creatinine Ratio 12.6 Glucose 113 H Calcium 9.0 C-React Prot Ext Range 10/18/18 10/18/18 10/18/18 05:46 05:46 05:46 WBC RBC Hgb Hct MCV MCH MCHC RDW RDW Differential Plt Count MPV Immature Gran % (Auto) Neut % (Auto) Lymph % (Auto) Starr % (Auto) Eos % (Auto) Baso % (Auto) Absolute Neuts (auto) Absolute Lymphs (auto) Total Counted ESR 4 Sodium 143 Potassium 4.2 Chloride 111 H Carbon Dioxide 22.0 Anion Gap 10 BUN 10 Creatinine 0.71 Estim Creat Clear Calc 82.83 Est GFR (MDRD) Af Amer 109 Est GFR (MDRD) Non-Af 90 BUN/Creatinine Ratio 14.0 Glucose 118 H Calcium 8.3 L C-React Prot Ext Range < 2.90 Assessment/Plan All Active Problems (Last Reviewed 12/31/17 @ 16:05 by Blanche Hanks) Dizziness (Acute) Splenic cyst (Acute) Multinodular thyroid (Acute) The patient is a 58 year old F with PMH of hypothyroidism, H/O right breast cancer, S/P lumpectomy and radiation in 2006, recent history of shingles and [place]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 Per patient she has had history of vertigo starting about a year ago, then it stopped around fall last year and then later patient had shingles in August 2018 for which she was treated with steroids and antivirals per patient, then had an episode of vertigo and dizziness with room spinning sensation that started on 10/16/2018, associated with nausea and vomiting and wobbliness, patient had to hold onto things to walk, dizziness would get worse if she moved or had any head movement. She had to lay down with her eyes closed per patient and when the dizziness did not go away for more than 24 hours she decided to come to the ED for further evaluation. She had an MRI brain with and without contrast done on 09/14/2018 which was reported to show nothing acute, and showed some nonspecific hyperintense foci in the bilateral frontal opercular. At present patient denies any new onset focal motor weakness sensory loss, visual disturbances, speech disturbances. Patient complains of mild generalized headache but denies any vision loss, jaw claudication, temporal tenderness. Per patient her dizziness has improved this morning. Impression Dizziness (likely peripheral etiology close ) Vertigo Plan ?Check repeat MRI brain with and without contrast ?Check CT angiogram head and neck ?ENT consult. Per patient she has an ENT follow-up coming up next week. ?Vestibular therapy ?ESR?4 ?PT/OT ?GI/DVT prophylaxis ?Fall precautions ?Further medical management per hospitalist team ?Follow-up with neurology as outpatient in 6 weeks ?Please call with questions if any ?Thank you for allowing us to part spent in patient's care and management Code Visit Inpatient E&M: [id number] Init Hosp L3
[2018-10-18] MEDS: 0.9% NaCl Peripheral Flush Adult/Peds IV ×2 (09:50→11:20)
[2018-10-18] MEDS: Ondansetron 4 MG/2 ML Vial IV (09:50)
--- NOTE | 2018-10-18 10:41 | PCM.DC ---
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 May resume sexual activity in: No Restrictions Weight Bearing Status: Weight bearing as tolerated Call your doctor if you observe: Fever of 101 or Higher, Inability to urinate, Inability to have a bowel movement, Shortness of breath, Dizziness, Fainting spells, Chest pain, Uncontrolled pain Instructions: Understanding Dizziness, Balance Problems, and Fainting, Possible Causes of Dizziness or Fainting, The Inner Ear: Understanding the Balance System, Managing Balance Problems: Vestibular Rehabilitation Therapy Additional Instructions: Please continue as needed meclizine or valium for vertigo and also rx sent for as needed phenergan for any associated nausea given history of zofran being ineffective. Please be aware that meclizine and Valium are both sedating. Please only use 1 of these medications at a time with prior discussions primarily usage of meclizine if needing to work and usage of Valium if off and not working, not driving with recurrent vertiginous symptoms. Case management will contact your 10/19/18 to arrange outpatient vestibular therapy per Neurology recommendation. Allergies/Adverse Reactions: Allergies No Known Allergies Allergy (Verified 10/17/18 18:31) Medications to take at Discharge Levothyroxine [Synthroid] 25 mcg PO DAILY 12/11/16 Calcium Carbonate [Calcium] 600 mg PO DAILY 12/30/16 Cholecalciferol (Vitamin D3) [Vitamin D3] 1,000 unit PO DAILY 12/30/16 Diazepam [Valium] 2 mg PO Q6H PRN PRN 5 Days #20 tablet 10/18/18 Meclizine HCl 12.5 - 25 mg PO Q6H PRN PRN #30 tablet 10/18/18 proMETHazine tablet [Phenergan tablet] 12.5 - 25 mg PO Q6H PRN PRN #20 tablet 10/18/18 The following prescriptions were given: Diazepam [Valium] 2 mg PO Q6H PRN PRN 5 Days #20 tablet PRN Reason: Vertigo Meclizine HCl 12.5 - 25 mg PO Q6H PRN PRN #30 tablet PRN Reason: Vertigo proMETHazine tablet [Phenergan tablet] 12.5 - 25 mg PO Q6H PRN PRN #20 tablet PRN Reason: nausea, emesis Primary Care Physician: iRchie Montgomery DO [Primary Care Provider] - Please follow up with your Primary Care Physician in: Follow-up within 3-5 days to review admission. Test Results: Test results from this visit will be discussed in further detail at your follow-up appointment, if applicable. Please Follow Up With: Colin Herr MD When: Please follow-up with ENT as needed. Proposed Discharge Date: 10/18/18
[2018-10-18] MEDS: LORazepam 2 MG/ML Syringe 1 MG IV (11:20)
[2018-10-18] MEDS: diazePAM 2 MG Tablet PO (12:49)
--- NOTE | 2018-10-18 13:26 | DS.PCM_ITS ---
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 Patient had recent 09/14/18 MRI Brain with and without contrast w/ noted no acute findings with some nonspecific hyperintense foci in the bilateral frontal hyperocular region. Patient was admitted to the PCU, maintained on IV fluids, benzodiazepine administered with improvement of patient vertiginous symptoms, maintained on telemetry, evaluated per neurology with recommendation to repeat MRI of the brain in addition to obtaining CTA of the head and neck. CTA of the head within normal [place] without a demonstrated aneurysm or hemodynamically significant stenosis, CTA of the neck with normal bilateral vertebral and cervical carotid arteries, possible 4 mm nodule left lobe of the thyroid not mentioned on ultrasound from January 02, 2015. MRI Brain with and without contrast repeated as noted w/ no evidence of acute intracranial bleed, mass or ischemia nor any evidence of abnormal enhancement. CRP and ESR obtained and both normal. Neurology recommended vestibular outpatient PT which was requested and [employer] staff noted she would discuss set-up with PRIYANKA/EMERSON on 10/19/18 and arrange. Patient discharged to home given improvement of symptoms with regimen alterations w/ rx for meclizine to be used for vertigo when at work and as needed low dose valium when not working and able to avoid driving with additionally PRN antiemetic regimen. DAY OF DISCHARGE PROGRESS NOTE: Subjective: Patient without acute event overnight per self and nursing report. She notes that her vertiginous symptoms have improved markedly and she is able to move her head with greater ease as well as sit up in the bed and get out of the bed to the wheelchair without any market recurrent vertigo. Admission she has been upset and anxious, understandably given ongoing symptoms. Patient has a very high stress job and her ongoing intermittent debility with vertigo has been adding to her stress. She notes prior she was active, exercised and would like to return to this status. Discussed habits and encouraged more appropriate water intake and healthy meal intake routinely. Patient denies fever, chills, nausea, emesis, abdominal pain, chest pain or dyspnea. Patient agreeable to discharge to home following unremarkable imaging given clinical improvement w/ rx for meclizine to be used for vertigo when at work and as needed low dose valium when not working and able to avoid driving with additionally PRN antiemetic regimen. Patient will be discharged with follow-up with primary care physician within 3-5 days in addition to follow-up with ENT for her ongoing issues w/ vertigo. Objective: T 98.9, heart rate 77, BP 118/75, respiratory rate 16, 100% on room air. Physical Examination: General: awake, alert, oriented x 3 and cooperative, seated upright in the bed, NAD. Skin: normal color, turgor, no icterus, cyanosis. HEENT: AT/NC, EOMI, PERRLA, MMM. Lungs: CTA bilaterally, moderate effort, mild decrease BL bases, no rales, ronchi or wheezing; Heart: Regular rate and rhythm; no gallop, rub audible. Abdomen: soft, NTTP, ND, normal BS. Extremities: no cyanosis, clubbing, or edema. Neurological: patient awake, alert, oriented x 3; cognitive function appears intact upon questioning,; pupils equally reactive to light and accomodation; cranial nerves II-XII grossly normal, moving all 4 extremities, strength appropriate. Psychiatric: affect appears normal, no acute evidence of depressive or anxiety feelings. Assessment and Plan: Please see hospital summary above. Patient Problems: Active and Suspected Problems (Last Reviewed 12/31/17 @ 16:05 by Blanche Hanks) Dizziness (Acute) - Physical Exam Vital Signs Temp Pulse Resp BP Pulse Ox 98.9 F 77 16 118/75 100 10/18/18 12:49 10/18/18 12:49 10/18/18 12:49 10/18/18 12:49 10/18/18 12:49 Oxygen Delivery Method Room Air Weight: 147 lb 0.773 oz Body Mass Index (BMI) 23.7 Intake and Output for Last 24 Hours 10/16/18 10/17/18 10/18/18 23:59 23:59 23:59 Intake Total 1551 / 1551 Balance 1551 / 1551 Laboratory Tests Past 24 Hrs 10/17/18 10/17/18 10/18/18 20:05 20:05 05:46 WBC 10.8 7.0 RBC 5.23 4.62 Hgb 15.4 H 14.2 Hct 47.0 41.2 MCV 89.9 89.2 MCH 29.4 30.7 MCHC 32.8 34.5 RDW 13.6 13.5 RDW Differential 44.5 H 43.7 Plt Count 229 221 MPV 10.3 10.8 Immature Gran % (Auto) 0.400 0.300 Neut % (Auto) 84.6 H 85.3 H Lymph % (Auto) 11.0 L 13.7 L Bennett % (Auto) 3.3 0.7 Eos % (Auto) 0.3 0.0 Baso % (Auto) 0.4 0.0 Absolute Neuts (auto) 9.1 H 6.0 Absolute Lymphs (auto) 1.18 0.96 Total Counted Not Reportable Not Reportable ESR Sodium 140 Potassium 3.9 Chloride 105 Carbon Dioxide 27.0 Anion Gap 8 BUN 11 Creatinine 0.87 Estim Creat Clear Calc 67.59 Est GFR (MDRD) Af Amer 87 Est GFR (MDRD) Non-Af 72 BUN/Creatinine Ratio 12.6 Glucose 113 H Calcium 9.0 C-React Prot Ext Range 10/18/18 10/18/18 10/18/18 05:46 05:46 05:46 WBC RBC Hgb Hct MCV MCH MCHC RDW RDW Differential Plt Count MPV Immature Gran % (Auto) Neut % (Auto) Lymph % (Auto) Bennett % (Auto) Eos % (Auto) Baso % (Auto) Absolute Neuts (auto) Absolute Lymphs (auto) Total Counted ESR 4 Sodium 143 Potassium 4.2 Chloride 111 H Carbon Dioxide 22.0 Anion Gap 10 BUN 10 Creatinine 0.71 Estim Creat Clear Calc 82.83 Est GFR (MDRD) Af Amer 109 Est GFR (MDRD) Non-Af 90 BUN/Creatinine Ratio 14.0 Glucose 118 H Calcium 8.3 L C-React Prot Ext Range < 2.90 Discharge Activity: - - Avoid driving if using sedative medications or ongoing vertiginous symptoms. May resume sexual activity in: No Restrictions Weight Bearing Status: Weight bearing as tolerated Call your doctor if you observe: Fever of 101 or Higher, Inability to urinate, Inability to have a bowel movement, Shortness of breath, Dizziness, Fainting spells, Chest pain, Uncontrolled pain Home Medications: Medications to take at Discharge Levothyroxine [Synthroid] 25 mcg PO DAILY 12/11/16 Calcium Carbonate [Calcium] 600 mg PO DAILY 12/30/16 Cholecalciferol (Vitamin D3) [Vitamin D3] 1,000 unit PO DAILY 12/30/16 Diazepam [Valium] 2 mg PO Q6H PRN PRN 5 Days #20 tablet 10/18/18 Meclizine HCl 12.5 - 25 mg PO Q6H PRN PRN #30 tablet 10/18/18 proMETHazine tablet [Phenergan tablet] 12.5 - 25 mg PO Q6H PRN PRN #20 tablet 10/18/18 Following Prescrptions Were Given to Patient: Diazepam [Valium] 2 mg PO Q6H PRN PRN 5 Days #20 tablet PRN Reason: Vertigo Meclizine HCl 12.5 - 25 mg PO Q6H PRN PRN #30 tablet PRN Reason: Vertigo proMETHazine tablet [Phenergan tablet] 12.5 - 25 mg PO Q6H PRN PRN #20 tablet PRN Reason: nausea, emesis Primary Care Physician: Richie Montgomery DO [Primary Care Provider] - Please follow up with your Primary Care Physician in: Follow-up within 3-5 days to review admission. Please Follow Up With: Colin Herr MD When: Please follow-up with ENT as needed. Patient Instructions: Understanding Dizziness, Balance Problems, and Fainting, Possible Causes of Dizziness or Fainting, The Inner Ear: Understanding the Balance System, Managing Balance Problems: Vestibular Rehabilitation Therapy Disposition: Home Minutes spent on discharge:: 35 Patient Condition:: Fair Medical Necessity - Tobacco Use Smoking Status: Never smoker Meaningful Use Info Meaningful Use Diagnoses (Choose all that apply): None applicable Code Visit OBSV E&M: 32619 Observation care discharge
--- NOTE | 2018-10-18 15:58 | NURSING ---
All documentation reviewed and/or done with student Maia.
== END 2018-10-18 11:32 | disposition home or self-care (01) ==
LOC: ED 19:59 → PCU 23:02
PROVIDERS: Admitting Provider Student in an Organized Health Care Education/Training Program; Emergency Provider Emergency Medicine; Family Provider Student in an Organized Health Care Education/Training Program; PCP Student in an Organized Health Care Education/Training Program; Visit Provider Family Medicine
DX: R42 Dizziness and giddiness (principal); B02.21 Postherpetic geniculate ganglionitis; Z85.3 Personal history of malignant neoplasm of breast; E03.9 Hypothyroidism, unspecified; Z79.899 Other long term (current) drug therapy
CPT/HCPCS: 70450; 70496; 70498; 70553; 80048; 85025; 85652; 86140; 96361; 96374; 96375; 96376; 97161; 97165; 99218; 99282; A9585; J7030; Q9967; A4216; G0378; J2405

== ENCOUNTER 2018-10-20 11:22 | Observation (INO) | payer OTHER, SELFPAY ==
[2018-10-20 11:23] VITALS: BP 141/83; PULSE 72; RESP 18; TEMP 36.8; O2SAT 100; BMI 23.8
[2018-10-20] MEDS: diazePAM 2 MG Tablet 4 MG PO (12:21)
[2018-10-20] MEDS: proMETHazine 25 MG/ML Syringe 12.5 MG IV (12:21)
[2018-10-20] MEDS: 0.9% Normal Saline 1,000 ML 999 ML IV (12:55)
[2018-10-20] MEDS: Acetaminophen 325 MG Tablet 650 MG PO ×2 (12:55→17:53)
[2018-10-20 13:02] VITALS: BP 138/93; PULSE 78; RESP 17; O2SAT 98
--- NOTE | 2018-10-20 13:02 | ED.VISSUMM ---
- ER Visit Summary Date of Service: 10/20/18 Chief Complaint: [Dizziness] History of Present Illness: The patient is a 58 F [presents the emergency department complaint of dizziness that started 5 days ago. Patient states she had sudden onset of dizziness 5 days ago with nausea and vomiting. Patient states she was admitted 4 days ago and discharged the next day. Patient had imaging of her brain including MRI as well as CTA of the head and neck which were unremarkable. 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 Patient at that time had her hearing tested and had some diminished hearing in the left ear. She is been complaining of tinnitus. Since being home from last admission patient continues to have dizziness despite medications at home. Patient had a hard time walking and seems to keep falling to the left. Patient continues to have dry heaves. Patient not able to eat.] Patient does complain of a headache as 9 out of 10. Photophobia. Physical Examination: [HEENT-PERRLA, EOMI. Cranial nerves II through XII grossly intact. TMs clear. Mucous membranes moist. No adenopathy. Cardiovascular-regular rate and rhythm without murmur or ectopy Lungs-clear to auscultation, chest wall stable without crepitus or subcu emphysema Abdomen-normoactive bowel sounds, soft, nontender, no rebound or rigidity, no peritoneal signs. Neuro qwag-cqpsrv-mjjg and heel erickson testing within normal limits, negative Romberg, negative pronator drift, fundi benign. Hallpike maneuver was negative for nystagmus. Extremities-intact ?4, normal range of motion, normal pulses, atraumatic] Test Results: [None indicated as patient had significant imaging within the last 3 days.] Emergency Department Course and Treatment: [Patient was given Valium 4 mg p.o. as well as Phenergan. Her nausea improved. Patient continues to complain of dizziness.] Treatment Plan: [Admit for further workup and evaluation and treatment of her dizziness. Etiology of her dizziness is unclear however M?ni?re's versus neuritis would be in the differential. I do not feel patient is having strokelike symptoms.] Disposition: [Admit] Impression: [Intractable dizziness] This note was generated with [employer] dictation software. It may contain incorrect words, spelling, and punctuation that were not noted in review of the chart prior to signing ED Disposition - Plan for ED Patient: Referrals: Richie Montgomery DO [Primary Care Provider] -
--- NOTE | 2018-10-20 13:05 | ED.DCSUM_ITS ---
- ER Visit Summary Date of Service: 10/20/18 Chief Complaint: [Dizziness] History of Present Illness: The patient is a 58 F [presents the emergency department complaint of dizziness that started 5 days ago. Patient states she had sudden onset of dizziness 5 days ago with nausea and vomiting. Patient states she was admitted 4 days ago and discharged the next day. Patient had imaging of her brain including MRI as well as CTA of the head and neck which were unremarkable. 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 Patient at that time had her hearing tested and had some diminished hearing in the left ear. She is been complaining of tinnitus. Since being home from last admission patient continues to have dizziness despite medications at home. Patient had a hard time walking and seems to keep falling to the left. Patient continues to have dry heaves. Patient not able to eat.] Patient does complain of a headache as 9 out of 10. Photophobia. Physical Examination: [HEENT-PERRLA, EOMI. Cranial nerves II through XII grossly intact. TMs clear. Mucous membranes moist. No adenopathy. Cardiovascular-regular rate and rhythm without murmur or ectopy Lungs-clear to auscultation, chest wall stable without crepitus or subcu emphysema Abdomen-normoactive bowel sounds, soft, nontender, no rebound or rigidity, no peritoneal signs. Neuro [id number]-[id number] and heel erickson testing within normal limits, negative Romberg, negative pronator drift, fundi benign. Hallpike maneuver was negative for nystagmus. Extremities-intact ?4, normal range of motion, normal pulses, atraumatic] Test Results: [None indicated as patient had significant imaging within the last 3 days.] Emergency Department Course and Treatment: [Patient was given Valium 4 mg p.o. as well as Phenergan. Her nausea improved. Patient continues to complain of dizziness.] Treatment Plan: [Admit for further workup and evaluation and treatment of her dizziness. Etiology of her dizziness is unclear however M?ni?re's versus neuritis would be in the differential. I do not feel patient is having strokelike symptoms.] Disposition: [Admit] Impression: [Intractable dizziness] This note was generated with [employer] dictation software. It may contain incorrect words, spelling, and punctuation that were not noted in review of the chart prior to signing ED Disposition - Plan for ED Patient: Referrals: Richie Montgomery DO [Primary Care Provider] -
--- NOTE | 2018-10-20 13:10 | NURSING ---
MED SURG OBS INTRACTABLE DIZZINESS LEANDER
--- NOTE | 2018-10-20 13:30 | PCM.HP.STD ---
Problem List (1) Vertigo Status: Acute History of Present Illness Date of Admission: 10/20/18 Chief Complaint: vertigo The patient is a 58 year old F who was admitted on the first with acute onset of vertigo. She underwent a workup including an MRI and CT angiogram of her head and neck that were negative. Patient was seen in consultation by neurology who felt that her vertigo was likely peripheral. Patient was feeling better but not completely resolved and was sent home on the third. Patient states that she was not completely resolved but was feeling much better than when she had initially presented. At home, patient continued to feel dizzy and I was leaning to towards her left side. Patient sought evaluation in the emergency room. In the emergency room, she received a total of 8 mg of Valium, Phenergan and Tylenol. No significant change at this time. Patient states that she has had some intermittent vertigo chronically. 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 Since then, she has had bilateral tinnitus. [] Past Medical History Past Medical History (Chronic Problems): Chronic Problems (Last Reviewed 12/31/17 @ 16:05 by Blanche Hanks) Cancer of right female breast (Chronic) Medical History: Medical History (Last Reviewed 10/20/18 @ 13:33 by Balaji Shaver DO) Splenic cyst (Acute) D73.4 Multinodular thyroid (Acute) E04.2 Cancer of right female breast (Chronic) C50.911 D&C History of breast cancer Z85.3 History of hysterectomy Z90.710 Mitral valve prolapse I34.1 Multinodular goiter E04.2 Allergies No Known Allergies Allergy (Verified 10/20/18 11:25) Home Medications: Ambulatory Orders Medication Instructions Recorded Levothyroxine [Synthroid] 25 mcg PO DAILY 12/11/16 Calcium Carbonate [Calcium] 600 mg PO DAILY 12/30/16 Cholecalciferol (Vitamin D3) 1,000 unit PO DAILY 12/30/16 [Vitamin D3] Diazepam [Valium] 2 mg PO Q6H PRN PRN 5 Days #20 10/18/18 tablet Meclizine HCl 12.5 - 25 mg PO Q6H PRN PRN #30 10/18/18 tablet proMETHazine tablet [Phenergan 12.5 - 25 mg PO Q6H PRN PRN #20 10/18/18 tablet] tablet Surgical History: Surgical History (Last Reviewed 10/20/18 @ 13:33 by Balaji Shaver DO) History of lumpectomy of right breast Z98.890 History of partial mastectomy Z90.10 2007 PARTICAL/MASTECTOMY WITH SENTINEL LYMPH NODE BIOPSY Surgical History: - - right breast lumpectomy-2006 Psychiatric History: No pertinent psych hx Smoking Status: Never smoker - *Family History Maternal Family History: Family History (Last Reviewed 10/20/18 @ 13:33 by Balaji Shaver DO) Father Family history of hypertension Cancer Grandmother Cancer CVA (cerebral vascular accident) Other Family history of cancer Review of Systems Constitutional: Denies: Anorexia, Chills, Fever Eyes: Denies: Blurred vision, Double vision HEENT: Reports: - - tinitus bilaterally. Denies: Head Aches, Sinus Congestion, Sinus Drainage Cardiovascular: Denies: Chest Pain, Palpitations Respiratory: Denies: Cough, Shortness of breath at rest, Sputum production Gastrointestinal: Reports: Nausea, Vomiting. Denies: Abdominal Pain Genitourinary: Denies: Dysuria Musculoskeletal: Denies: Joint Pain, Joint Tenderness Skin: Denies: Rash, Wounds Neurological: Denies: Numbness, Tingling, Focal weakness Psychiatric: Denies: Anxiety, Depression Hematologic/ Lymphatic: Denies: Easy Bruising, Easy Bleeding, Hx of blood clot Comment: A 10 point review of systems were negative except as mentioned in the history of present illness and the other review of systems. VTE Information - Inpt Only VTE Present on Admission: No VTE Mechan Device Prophylaxis: None Patient Problems: Active and Suspected Problems (Last Reviewed 12/31/17 @ 16:05 by Blanche Hanks) Vertigo (Acute) - Physical Exam General: Alert, Cooperative, No apparent distress HEENT: Atraumatic, PERRLA, EOMI, Normocephalic, - - Tympanic membranes intact questionable scarring on the left. Oral: Moist Mucosa, No Gingival or Mucosal Lesions/ Ulcerations Neck: No Nodes, Thyroid Normal Size and Texture Lungs: Clear to auscultation, Normal air movement, No rhonchi, No wheeze Cardiovascular: Regular rate, Regular Rhythm, Normal S1, Normal S2, No murmurs Abdomen: Bowel Sounds Present, Soft, Non Tender, Non-Distended, No Hepato-splenomegaly Extremities: No edema, No Calf Tenderness Skin: No rashes, No breakdown Musculoskeletal: No Tenderness to Palpation of Joints or Extremities, No Muscle Wasting Neurological: - - [place]-Hallpike was performed and had reproducible dizziness bilaterally with some mass on the right. Symptoms were worse on the right than on the left. Psych/Mental Status: Normal Affect, Appropriate Vital Signs Temp Pulse Resp BP Pulse Ox 36.8 C 78 17 138/93 H 98 10/20/18 11:23 10/20/18 13:02 10/20/18 13:02 10/20/18 13:02 10/20/18 13:02 Oxygen Delivery Method Room Air Weight: 67.132 kg Body Mass Index (BMI) 23.8 Assessment/Plan All Active Problems (Last Reviewed 12/31/17 @ 16:05 by Blanche Hanks) Dizziness (Acute) Vertigo (Acute) Splenic cyst (Acute) Multinodular thyroid (Acute) 1. Suspected benign paroxysmal positional vertigo No significant change from when she was discharged just 2 days ago and patient does endorse that she was feeling dizzy at that time. Patient has undergone an extensive workup already during that admission and previous admissions. No additional imaging is necessary at this time. Patient was already on Valium as well meclizine with no relief. Neurology had recommended ENT consultation which patient was going to originally do as outpatient but since she is back within 48 hours, will place consult to ENT for evaluation. Page out to ENT currently. Consult physical therapy for vestibular rehab. 2. DVT prophylaxis with Lovenox. Code Visit OBSV E&M: 95604 Initial observation care L3
[2018-10-20 14:15] VITALS: BMI 23.5
[2018-10-20 14:18] VITALS: BMI 23.5
[2018-10-20 14:25] VITALS: BP 134/89; PULSE 69; RESP 16; TEMP 36.9; O2SAT 100
--- NOTE | 2018-10-20 15:07 | PCM.CONS.GEN ---
Problem List (1) Dizziness Status: Acute Reason for Consult Date of Consultation: 10/20/18 History of Present Illness: The patient is a 58 year old F with a recent history of room-spinning vertigo, left unilateral hearing loss and left facial palsy that had all since resolved, presented today after a recent admission for intractable dizziness. recent admission resulted in CT/MRI that were reportedly negative (i cannot currently view the images). she was discharged with meclizine and valium and her symptoms returned. over the past few days, notes tinnitus, room-spinning, aural fullness and hearing loss. Past Medical History Past Medical History (Chronic Problems): Chronic Problems (Last Reviewed 10/20/18 @ 13:33 by Balaji Shaver DO) Cancer of right female breast (Chronic) Medical History: Medical History (Last Reviewed 10/20/18 @ 13:33 by Balaji Shaver DO) Splenic cyst (Acute) D73.4 Multinodular thyroid (Acute) E04.2 Cancer of right female breast (Chronic) C50.911 D&C History of breast cancer Z85.3 History of hysterectomy Z90.710 Mitral valve prolapse I34.1 Multinodular goiter E04.2 Allergies No Known Allergies Allergy (Verified 10/20/18 11:25) Home Medications: Ambulatory Orders Medication Instructions Recorded Levothyroxine [Synthroid] 25 mcg PO DAILY 12/11/16 Calcium Carbonate [Calcium] 600 mg PO DAILY 12/30/16 Cholecalciferol (Vitamin D3) 1,000 unit PO DAILY 12/30/16 [Vitamin D3] Diazepam [Valium] 2 mg PO Q6H PRN PRN 5 Days #20 10/18/18 tablet Meclizine HCl 12.5 - 25 mg PO Q6H PRN PRN #30 10/18/18 tablet proMETHazine tablet [Phenergan 12.5 - 25 mg PO Q6H PRN PRN #20 10/18/18 tablet] tablet Surgical History: Surgical History (Last Reviewed 10/20/18 @ 13:33 by Balaji Shaver DO) History of lumpectomy of right breast Z98.890 History of partial mastectomy Z90.10 2006 PARTICAL/MASTECTOMY WITH SENTINEL LYMPH NODE BIOPSY Surgical History: - - right breast lumpectomy-2006 Psychiatric History: No pertinent psych hx Smoking Status: Never smoker - *Family History Maternal Family History: Family History (Last Reviewed 10/20/18 @ 13:33 by Balaji Shaver DO) Father Family history of hypertension Cancer Grandmother Cancer CVA (cerebral vascular accident) Other Family history of cancer Review of Systems Constitutional: Reports: - - dizziness HEENT: Reports: Head Aches Patient Problems: Active and Suspected Problems (Last Reviewed 10/20/18 @ 13:33 by Balaji Shaver DO) Vertigo (Acute) - Physical Exam General: Alert, Oriented x3, Cooperative HEENT: TM's Clear Neck: Supple Lungs: No wheeze Vital Signs Temp Pulse Resp BP Pulse Ox 98.4 F 69 16 134/89 H 100 10/20/18 14:25 10/20/18 14:25 10/20/18 14:25 10/20/18 14:25 10/20/18 14:25 Oxygen Delivery Method Room Air Weight: 66.043 kg Body Mass Index (BMI) 23.5 Assessment/Plan All Active Problems (Last Reviewed 10/20/18 @ 13:33 by Balaji Shaver DO) Dizziness (Acute) Vertigo (Acute) Splenic cyst (Acute) Multinodular thyroid (Acute) The patient is a 58 year old F with a recent history of room-spinning vertigo, left unilateral hearing loss and left facial palsy that had all since resolved, presented today after a recent admission for intractable dizziness. recent admission resulted in CT/MRI that were reportedly negative (i cannot currently view the images). she was discharged with meclizine and valium and her symptoms returned. over the past few days, notes tinnitus, room-spinning, aural fullness and hearing loss. -likely meniere disease. this does not account for the recent facial paresis, but was potentially precipitated by a viral phenomenon. -previous imaging negative for cerebellopontine mass -recommend low salt diet, 12.5 of hydrochlorothiazide and an immediate 8mg of decadron with a medrol dose pack Rx upon discharge in the event that any symptoms recur at home -f/u with me at [facility] for an audiogram in 2 wks, sooner PRN
[2018-10-20] MEDS: 0.9% Normal Saline 1,000 ML 125 ML IV (15:45)
[2018-10-20] MEDS: hydroCHLOROthiazide 12.5mg 12.5 MG PO (17:33)
[2018-10-20] MEDS: Ondansetron 4 MG/2 ML Vial IV (17:46)
[2018-10-20] MEDS: diazePAM 2 MG Tablet PO ×2 (17:46→23:56)
--- NOTE | 2018-10-20 19:42 | NURSING ---
Param RN had texted Dr. Shaver about discontinuing Prednisone. Dr. Shaver called this RN and gave me a verbal order to discontinue.
[2018-10-20 20:01] VITALS: BP 116/77; PULSE 74; RESP 16; TEMP 36.7; O2SAT 98
[2018-10-20] MEDS: proMETHazine 25 MG Tablet 12.5 MG PO (23:56)
[2018-10-21 03:08] VITALS: BP 112/79; PULSE 66; RESP 16; TEMP 36.6; O2SAT 97
[2018-10-21] MEDS: 0.9% NaCl Peripheral Flush Adult/Peds IV ×3 (05:46→16:07)
[2018-10-21] MEDS: Levothyroxine 25 MCG TABLET PO (05:46)
[2018-10-21] MEDS: diazePAM 2 MG Tablet PO ×3 (05:57→19:41)
[2018-10-21 08:00] VITALS: BP 129/87; PULSE 67; RESP 14; TEMP 36.8; O2SAT 100
[2018-10-21] MEDS: Ondansetron 4 MG/2 ML Vial IV ×2 (08:52→16:17)
--- NOTE | 2018-10-21 09:04 | PCM.PN.HOSP ---
Patient Problems: Active and Suspected Problems (Last Reviewed 10/20/18 @ 13:33 by Balaji Shaver DO) Vertigo (Acute) Subjective: Feeling better, but felt much better last night. Today, dizziness is improved, but persists. Was able to eat last night, has not had breakfast yet today. Vitals/I&O's: Vital Signs Temp Pulse Resp BP Pulse Ox 36.8 C 67 14 129/87 H 100 10/21/18 08:00 10/21/18 08:00 10/21/18 08:00 10/21/18 08:00 10/21/18 08:00 Oxygen Delivery Method Room Air Weight: 66.04 kg Body Mass Index (BMI) 23.5 Intake and Output for Last 24 Hours 10/19/18 10/20/18 10/21/18 23:59 23:59 23:59 Intake Total 1472 / 1472 Output Total 1275 / 1275 Balance 197 / 197 General: Alert, No apparent distress HEENT: Atraumatic, EOMI, Normocephalic, - - right lateral nystagmus. Psych/Mental Status: Normal Affect, Appropriate Current Medications Acetaminophen (Tylenol) 650 mg PO Q6H PRN PRN PRN Reason: Mild Pain (1-3)/Temp > 100.7 F Last Admin: 10/20/18 17:53 Dose: 650 mg Calcium Carbonate (Os-Lewis 500) 500 mg PO DAILY [facility] Cholecalciferol (Vitamin D) 1,000 unit PO DAILY [facility] Diazepam (Valium) 2 mg PO Q6H PRN PRN PRN Reason: Vertigo Last Admin: 10/21/18 05:57 Dose: 2 mg Enoxaparin Sodium (Lovenox) 40 mg SC DAILY@1000 [facility] Hydrochlorothiazide () 12.5 mg PO DAILY [facility] Last Admin: 10/20/18 17:33 Dose: 12.5 mg Levothyroxine Sodium (Synthroid) 25 mcg PO DAILY@0600 [facility] Last Admin: 10/21/18 05:46 Dose: 25 mcg Magnesium Hydroxide (Milk Of Magnesia) 30 ml PO DAILY PRN PRN PRN Reason: Constipation Meclizine HCl (Antivert) 12.5 mg PO Q6H PRN PRN PRN Reason: Vertigo Ondansetron HCl (Zofran) 4 mg IV Q8H PRN PRN PRN Reason: NAUSEA Last Admin: 10/21/18 08:52 Dose: 4 mg Promethazine HCl (Phenergan Tablet) 12.5 mg PO Q6H PRN PRN PRN Reason: nausea, emesis Last Admin: 10/20/18 23:56 Dose: 12.5 mg Sodium Chloride () 5 - 15 ml IV UD PRN PRN Reason: SALINE FLUSH Last Admin: 10/21/18 08:52 Dose: 10 ml Medical Necessity - Tobacco Use Smoking Status: Never smoker Assessment/Plan All Active Problems (Last Reviewed 10/20/18 @ 13:33 by Balaji Shaver DO) Dizziness (Acute) Vertigo (Acute) Splenic cyst (Acute) Multinodular thyroid (Acute) 1. Vertigo DW Dr. Daigle yesterday, who feels she may have M?ni?re's disease. He recommended HCTZ 12.5, low salt diet and 1 time dose of 8mg IV decadron. Additionally, he recommended PRN Medrol dose pack as outpt for symptoms. Will reassess to see how she is doing later today. 2. DVT prophylaxis with Lovenox. Code Visit OBSV E&M: 77801 Subsequent observation care L2
--- NOTE | 2018-10-21 09:08 | PN_ITS ---
Patient Problems: Active and Suspected Problems (Last Reviewed 10/20/18 @ 13:33 by Balaji Shaver DO) Vertigo (Acute) Subjective: Feeling better, but felt much better last night. Today, dizziness is improved, but persists. Was able to eat last night, has not had breakfast yet today. Vitals/I&O's: Vital Signs Temp Pulse Resp BP Pulse Ox 36.8 C 67 14 129/87 H 100 10/21/18 08:00 10/21/18 08:00 10/21/18 08:00 10/21/18 08:00 10/21/18 08:00 Oxygen Delivery Method Room Air Weight: 66.04 kg Body Mass Index (BMI) 23.5 Intake and Output for Last 24 Hours 10/19/18 10/20/18 10/21/18 23:59 23:59 23:59 Intake Total 1472 / 1472 Output Total 1275 / 1275 Balance 197 / 197 General: Alert, No apparent distress HEENT: Atraumatic, EOMI, Normocephalic, - - right lateral nystagmus. Psych/Mental Status: Normal Affect, Appropriate Current Medications Acetaminophen (Tylenol) 650 mg PO Q6H PRN PRN PRN Reason: Mild Pain (1-3)/Temp > 100.7 F Last Admin: 10/20/18 17:53 Dose: 650 mg Calcium Carbonate (Os-Lewis 500) 500 mg PO DAILY [facility] Cholecalciferol (Vitamin D) 1,000 unit PO DAILY [facility] Diazepam (Valium) 2 mg PO Q6H PRN PRN PRN Reason: Vertigo Last Admin: 10/21/18 05:57 Dose: 2 mg Enoxaparin Sodium (Lovenox) 40 mg SC DAILY@1000 [facility] Hydrochlorothiazide () 12.5 mg PO DAILY [facility] Last Admin: 10/20/18 17:33 Dose: 12.5 mg Levothyroxine Sodium (Synthroid) 25 mcg PO DAILY@0600 [facility] Last Admin: 10/21/18 05:46 Dose: 25 mcg Magnesium Hydroxide (Milk Of Magnesia) 30 ml PO DAILY PRN PRN PRN Reason: Constipation Meclizine HCl (Antivert) 12.5 mg PO Q6H PRN PRN PRN Reason: Vertigo Ondansetron HCl (Zofran) 4 mg IV Q8H PRN PRN PRN Reason: NAUSEA Last Admin: 10/21/18 08:52 Dose: 4 mg Promethazine HCl (Phenergan Tablet) 12.5 mg PO Q6H PRN PRN PRN Reason: nausea, emesis Last Admin: 10/20/18 23:56 Dose: 12.5 mg Sodium Chloride () 5 - 15 ml IV UD PRN PRN Reason: SALINE FLUSH Last Admin: 10/21/18 08:52 Dose: 10 ml Medical Necessity - Tobacco Use Smoking Status: Never smoker Assessment/Plan All Active Problems (Last Reviewed 10/20/18 @ 13:33 by Balaji Shaver DO) Dizziness (Acute) Vertigo (Acute) Splenic cyst (Acute) Multinodular thyroid (Acute) 1. Vertigo DW Dr. Daigle yesterday, who feels she may have M?ni?re's disease. He recommended HCTZ 12.5, low salt diet and 1 time dose of 8mg IV decadron. Additionally, he recommended PRN Medrol dose pack as outpt for symptoms. Will reassess to see how she is doing later today. 2. DVT prophylaxis with Lovenox. Code Visit OBSV E&M: 81990 Subsequent observation care L2
[2018-10-21] MEDS: Calcium (Elemental) 500 MG Tablet PO (09:51)
[2018-10-21] MEDS: Enoxaparin 40 MG/0.4 ML Syringe SC (09:52)
[2018-10-21] MEDS: hydroCHLOROthiazide 12.5mg 12.5 MG PO (09:55)
[2018-10-21] MEDS: proMETHazine 25 MG Tablet 12.5 MG PO ×2 (11:21→19:42)
[2018-10-21 12:56] VITALS: BP 127/90; PULSE 66; RESP 18; TEMP 36.8; O2SAT 98
[2018-10-21 14:30] LABS: Anion Gap 7 (5-15); BUN 8 mg/dL (7-18); BUN/Creat Ratio 9.3 RATIO (10-20); Calcium,Total 9.2 mg/dL (8.5-10.1); Chloride 107 mmol/L (98-107); Creatinine, Serum 0.86 mg/dL (0.55-1.02); EST Glomerular Filtration Rate 73 mL/min (>60); Est Glom Filt Rate - Afr Amer 88 mL/min (>60); Estimated Creatinine Clearance 68.38 ml/min; Glucose 102 mg/dL (74-106); Potassium 3.6 mmol/L (3.5-5.1); Sodium Level 140 mmol/L (136-145)
[2018-10-21 16:00] VITALS: PULSE 67; RESP 16; TEMP 36.7; O2SAT 98
[2018-10-21] MEDS: 0.45% Normal Saline 1,000 ML 150 ML IV (16:06)
[2018-10-21] MEDS: Acetaminophen 325 MG Tablet 650 MG PO (16:07)
[2018-10-21] MEDS: Meclizine 12.5 MG Tablet PO (16:07)
[2018-10-21] MEDS: MethylPREDNISolone DosePak 4 MG BOX PO ×2 (16:09→22:16)
[2018-10-21 20:21] VITALS: BP 148/95; PULSE 66; RESP 14; TEMP 36.6; O2SAT 98
--- NOTE | 2018-10-21 20:24 | NURSING ---
Pt unsatisfied with the care and direction of Dr. Shaver and would like to terminate care with him. Pt and has requested the services of another Hospitalist tomorrow 10/22. This information has been elevated to Aurelia MENDIETA.
[2018-10-22 02:15] VITALS: BP 112/71; PULSE 69; RESP 16; TEMP 36.2; O2SAT 98
[2018-10-22] MEDS: proMETHazine 25 MG Tablet 12.5 MG PO (02:23)
[2018-10-22] MEDS: Ibuprofen 400 MG Tablet PO (02:23)
[2018-10-22] MEDS: Levothyroxine 25 MCG TABLET PO (06:33)
[2018-10-22 08:37] VITALS: BP 122/73; PULSE 73; RESP 16; TEMP 36.4; O2SAT 95
[2018-10-22] MEDS: MethylPREDNISolone DosePak 4 MG BOX PO ×3 (08:53→16:37)
[2018-10-22] MEDS: Calcium (Elemental) 500 MG Tablet PO (10:31)
[2018-10-22] MEDS: Enoxaparin 40 MG/0.4 ML Syringe SC (10:31)
[2018-10-22] MEDS: hydroCHLOROthiazide 12.5mg 12.5 MG PO (10:31)
--- NOTE | 2018-10-22 10:47 | PCM.PN.HOSP ---
Patient Problems: Active and Suspected Problems (Last Reviewed 10/20/18 @ 13:33 by Balaji Shaver DO) Vertigo (Acute) Subjective: Still dizzy and nauseated. Just expressing a lot of disgust at the fact that she has not improved. Vitals/I&O's: Vital Signs Temp Pulse Resp BP Pulse Ox 36.4 C L 73 16 122/73 H 95 10/22/18 08:37 10/22/18 08:37 10/22/18 08:37 10/22/18 08:37 10/22/18 08:37 Oxygen Delivery Method Room Air Weight: 66.04 kg Body Mass Index (BMI) 23.5 Intake and Output for Last 24 Hours 10/20/18 10/21/18 10/22/18 23:59 23:59 23:59 Intake Total 2021 1850 / 1850 Output Total 2099 / 2099 1400 / 1400 Balance -78 / -78 450 / 450 General: Alert, No apparent distress HEENT: Atraumatic, EOMI - Right lateral nystagmus, Normocephalic Oral: Moist Mucosa Neck: No Nodes, Thyroid Normal Size and Texture Lungs: Clear to auscultation, Normal air movement, No rhonchi, No wheeze Cardiovascular: Regular rate, Regular Rhythm, Normal S1, Normal S2, No murmurs Abdomen: Bowel Sounds Present, Soft, Non Tender, Non-Distended, No Hepato-splenomegaly Extremities: No edema, No Calf Tenderness Skin: No rashes, No breakdown Psych/Mental Status: Flat Affect Laboratory Results 10/21/18 13:50: Sodium 140, Potassium 3.6, Chloride 107, Carbon Dioxide 26.0, Anion Gap 7, BUN 8, Creatinine 0.86, Estim Creat Clear Calc 68.38, Est GFR (MDRD) Af Amer 88, Est GFR (MDRD) Non-Af 73, BUN/Creatinine Ratio 9.3 L, Glucose 102, Calcium 9.2 Current Medications Acetaminophen (Tylenol) 650 mg PO Q6H PRN PRN PRN Reason: Mild Pain (1-3)/Temp > 100.7 F Last Admin: 10/21/18 16:07 Dose: 650 mg Calcium Carbonate (Os-Lewis 500) 500 mg PO DAILY TALI Last Admin: 10/22/18 10:31 Dose: 500 mg Cholecalciferol (Vitamin D) 1,000 unit PO DAILY COUNT INCLUDES THE [facility] Last Admin: 10/22/18 10:31 Dose: 1,000 unit Diazepam (Valium) 2 mg PO Q6H PRN PRN PRN Reason: Vertigo Last Admin: 10/21/18 19:41 Dose: 2 mg Enoxaparin Sodium (Lovenox) 40 mg SC DAILY@1000 TALI Last Admin: 10/22/18 10:31 Dose: 40 mg Hydrochlorothiazide () 12.5 mg PO DAILY COUNT INCLUDES THE [facility] Last Admin: 10/22/18 10:31 Dose: 12.5 mg Ibuprofen (Motrin) 400 mg PO Q6H PRN PRN PRN Reason: HEADACHE Last Admin: 10/22/18 02:23 Dose: 400 mg Levothyroxine Sodium (Synthroid) 25 mcg PO DAILY@0600 TALI Last Admin: 10/22/18 06:33 Dose: 25 mcg Magnesium Hydroxide (Milk Of Magnesia) 30 ml PO DAILY PRN PRN PRN Reason: Constipation Meclizine HCl (Antivert) 12.5 mg PO Q6H PRN PRN PRN Reason: Vertigo Last Admin: 10/21/18 16:07 Dose: 12.5 mg Methylprednisolone (Medrol Dosepak) 4 mg PO 0800,1200,1700 TALI; Taper Stop: 10/26/18 08:59 Last Admin: 10/22/18 08:53 Dose: 4 mg Ondansetron HCl (Zofran) 4 mg IV Q8H PRN PRN PRN Reason: NAUSEA Last Admin: 10/21/18 16:17 Dose: 4 mg Promethazine HCl (Phenergan Tablet) 12.5 mg PO Q6H PRN PRN PRN Reason: nausea, emesis Last Admin: 10/22/18 02:23 Dose: 12.5 mg Sodium Chloride () 5 - 15 ml IV UD PRN PRN Reason: SALINE FLUSH Last Admin: 10/21/18 16:07 Dose: 10 ml Medical Necessity - Tobacco Use Smoking Status: Never smoker Assessment/Plan All Active Problems (Last Reviewed 10/20/18 @ 13:33 by Balaji Shaver DO) Dizziness (Acute) Vertigo (Acute) Splenic cyst (Acute) Multinodular thyroid (Acute) 1. Vertigo Ongoing. Patient reports that she has unchanged, but her symptoms seem to be more pronounced when she was admitted where slight movement made her symptoms. Now, she is able to go to the bathroom without significant duress. I discussed with Dr. Garcia who reiterated much of the same as Dr. Daigle this is possibly M?ni?re's and to continue with current medical therapy at this time and follow-up in the office for audiometry. He did say that if patient is desiring a second opinion that she can be transferred to another facility where they can more thoroughly evaluate her in the hospital release provide a second opinion in regards to that. He did not have any additional recommendations to add to her therapy. I discussed this with the patient that it would just be attenuation of her current therapy and to follow-up with ENT. I did offer the patient the opportunity to be transferred to another facility for evaluation but she thought about and then declined it but I also did inform her that if I do tend to transfer I do have to speak to physician on the other line and explained to them that given her symptoms that she would actually a patient I would otherwise discharge but she is unable to tolerate her symptoms at this time. I explained that could lead to denial but also it may be potentially horizontal transfer which may occur because of transportation to the other facility. As mentioned previously, patient declined transfer at this time. I discussed again with Dr. Raymond and she had requested to speak with him and he said that he would call her about her condition. Patient did inquire if this could be a labyrinthitis to his I did discuss with Dr. Raymond and he stated that treatment is the same as what he had Dr. Daigle feel that she may have. And the audiometry would help elucidate if it is M?ni?re's versus labyrinthitis but all of her symptoms could be consistent with either. I will ask for physical therapy to reevaluate and see about if any benefit can be derived from that. Otherwise, I told the patient that if this is a matter of when she feels that her symptoms are to a point where she can go home. I feel the patient needs a lot of reassurance and time to manage expectations. 2. DVT prophylaxis with Lovenox. Greater than 50 minutes of which greater than 50% of time was talking with the patient and counseling about my conversation with ENT both over the past few days and also listening to her concerns about her symptoms and not getting better as soon as she would like and also discussed with transfer process. Code Visit Inpatient E&M: 20625 Subs Hosp L3
--- NOTE | 2018-10-22 10:54 | PN_ITS ---
Patient Problems: Active and Suspected Problems (Last Reviewed 10/20/18 @ 13:33 by Balaji Shaver DO) Vertigo (Acute) Subjective: Still dizzy and nauseated. Just expressing a lot of disgust at the fact that she has not improved. Vitals/I&O's: Vital Signs Temp Pulse Resp BP Pulse Ox 36.4 C L 73 16 122/73 H 95 10/22/18 08:37 10/22/18 08:37 10/22/18 08:37 10/22/18 08:37 10/22/18 08:37 Oxygen Delivery Method Room Air Weight: 66.04 kg Body Mass Index (BMI) 23.5 Intake and Output for Last 24 Hours 10/20/18 10/21/18 10/22/18 23:59 23:59 23:59 Intake Total 2021 1850 / 1850 Output Total 2099 / 2099 1400 / 1400 Balance -78 / -78 450 / 450 General: Alert, No apparent distress HEENT: Atraumatic, EOMI - Right lateral nystagmus, Normocephalic Oral: Moist Mucosa Neck: No Nodes, Thyroid Normal Size and Texture Lungs: Clear to auscultation, Normal air movement, No rhonchi, No wheeze Cardiovascular: Regular rate, Regular Rhythm, Normal S1, Normal S2, No murmurs Abdomen: Bowel Sounds Present, Soft, Non Tender, Non-Distended, No Hepato- splenomegaly Extremities: No edema, No Calf Tenderness Skin: No rashes, No breakdown Psych/Mental Status: Flat Affect Laboratory Results 10/21/18 13:50: Sodium 140, Potassium 3.6, Chloride 107, Carbon Dioxide 26.0, Anion Gap 7, BUN 8, Creatinine 0.86, Estim Creat Clear Calc 68.38, Est GFR (MDRD) Af Amer 88, Est GFR (MDRD) Non-Af 73, BUN/Creatinine Ratio 9.3 L, Glucose 102, Calcium 9.2 Current Medications Acetaminophen (Tylenol) 650 mg PO Q6H PRN PRN PRN Reason: Mild Pain (1-3)/Temp > 100.7 F Last Admin: 10/21/18 16:07 Dose: 650 mg Calcium Carbonate (Os-Lewis 500) 500 mg PO DAILY TALI Last Admin: 10/22/18 10:31 Dose: 500 mg Cholecalciferol (Vitamin D) 1,000 unit PO DAILY [facility] Last Admin: 10/22/18 10:31 Dose: 1,000 unit Diazepam (Valium) 2 mg PO Q6H PRN PRN PRN Reason: Vertigo Last Admin: 10/21/18 19:41 Dose: 2 mg Enoxaparin Sodium (Lovenox) 40 mg SC DAILY@1000 TALI Last Admin: 10/22/18 10:31 Dose: 40 mg Hydrochlorothiazide () 12.5 mg PO DAILY [facility] Last Admin: 10/22/18 10:31 Dose: 12.5 mg Ibuprofen (Motrin) 400 mg PO Q6H PRN PRN PRN Reason: HEADACHE Last Admin: 10/22/18 02:23 Dose: 400 mg Levothyroxine Sodium (Synthroid) 25 mcg PO DAILY@0600 TALI Last Admin: 10/22/18 06:33 Dose: 25 mcg Magnesium Hydroxide (Milk Of Magnesia) 30 ml PO DAILY PRN PRN PRN Reason: Constipation Meclizine HCl (Antivert) 12.5 mg PO Q6H PRN PRN PRN Reason: Vertigo Last Admin: 10/21/18 16:07 Dose: 12.5 mg Methylprednisolone (Medrol Dosepak) 4 mg PO 0800,1200,1700 TALI; Taper Stop: 10/26/18 08:59 Last Admin: 10/22/18 08:53 Dose: 4 mg Ondansetron HCl (Zofran) 4 mg IV Q8H PRN PRN PRN Reason: NAUSEA Last Admin: 10/21/18 16:17 Dose: 4 mg Promethazine HCl (Phenergan Tablet) 12.5 mg PO Q6H PRN PRN PRN Reason: nausea, emesis Last Admin: 10/22/18 02:23 Dose: 12.5 mg Sodium Chloride () 5 - 15 ml IV UD PRN PRN Reason: SALINE FLUSH Last Admin: 10/21/18 16:07 Dose: 10 ml Medical Necessity - Tobacco Use Smoking Status: Never smoker Assessment/Plan All Active Problems (Last Reviewed 10/20/18 @ 13:33 by Balaji Shaver DO) Dizziness (Acute) Vertigo (Acute) Splenic cyst (Acute) Multinodular thyroid (Acute) 1. Vertigo Ongoing. Patient reports that she has unchanged, but her symptoms seem to be more pronounced when she was admitted where slight movement made her symptoms. Now, she is able to go to the bathroom without significant duress. I discussed with Dr. Garcia who reiterated much of the same as Dr. Daigle this is possibly M?ni?re's and to continue with current medical therapy at this time and follow- up in the office for audiometry. He did say that if patient is desiring a second opinion that she can be transferred to another facility where they can more thoroughly evaluate her in the hospital release provide a second opinion in regards to that. He did not have any additional recommendations to add to her therapy. I discussed this with the patient that it would just be attenuation of her current therapy and to follow-up with ENT. I did offer the patient the opportunity to be transferred to another facility for evaluation but she thought about and then declined it but I also did inform her that if I do tend to transfer I do have to speak to physician on the other line and explained to them that given her symptoms that she would actually a patient I would otherwise discharge but she is unable to tolerate her symptoms at this time. I explained that could lead to denial but also it may be potentially horizontal transfer which may occur because of transportation to the other facility. As mentioned previously, patient declined transfer at this time. I discussed again with Dr. Raymond and she had requested to speak with him and he said that he would call her about her condition. Patient did inquire if this could be a labyrinthitis to his I did discuss with Dr. Raymond and he stated that treatment is the same as what he had Dr. Daigle feel that she may have. And the audiometry would help elucidate if it is M?ni?re's versus labyrinthitis but all of her symptoms could be consistent with either. I will ask for physical therapy to reevaluate and see about if any benefit can be derived from that. Otherwise, I told the patient that if this is a matter of when she feels that her symptoms are to a point where she can go home. I feel the patient needs a lot of reassurance and time to manage expectations. 2. DVT prophylaxis with Lovenox. Greater than 50 minutes of which greater than 50% of time was talking with the patient and counseling about my conversation with ENT both over the past few days and also listening to her concerns about her symptoms and not getting better as soon as she would like and also discussed with transfer process. Code Visit Inpatient E&M: 19284 Subs Hosp L3
--- NOTE | 2018-10-22 11:15 | CASEMGMT ---
ANAM MATHEW Note: Pt requested to speak with ANAM MATHEW re: insurance and OBS status. Explained, questions answered. Pt voiced frustration that she does not have definitive answer re: her vertigo. She requested to see ENT physician and per charge nurse, ENT physician would be calling her to answer questions. Nicholas BROWNE RN ACM
[2018-10-22 14:40] VITALS: BP 128/68; PULSE 68; RESP 16; TEMP 36.6; O2SAT 97
[2018-10-22] MEDS: diazePAM 2 MG Tablet PO (14:48)
[2018-10-22] MEDS: Ondansetron 4 MG/2 ML Vial IV (14:48)
[2018-10-22] MEDS: 0.9% NaCl Peripheral Flush Adult/Peds IV (14:49)
--- NOTE | 2018-10-22 16:35 | DCINST_ITS ---
- Discharge Diagnoses Current Active Problems: Current Active and Chronic Problems (Last Reviewed 10/20/18 @ 13:33 by Balaji Shaver DO) Vertigo (Acute) You will use the following diet at home:: Other - low salt diet (2grams/day) Your food should be the consistency of: Regular Your liquids should be the consistency of: Regular/Thin Discharge Activity: - - activity as tolerated. Do not return to work until dizziness resolveds. Call your doctor if you observe: - - intractable dizziness, intractable nausea/vomiting. Allergies/Adverse Reactions: Allergies No Known Allergies Allergy (Verified 10/20/18 11:25) Medications to take at Discharge Levothyroxine [Synthroid] 25 mcg PO DAILY 12/11/16 Calcium Carbonate [Calcium] 600 mg PO DAILY 12/30/16 Cholecalciferol (Vitamin D3) [Vitamin D3] 1,000 unit PO DAILY 12/30/16 Diazepam [Valium] 2 mg PO Q6H PRN PRN 5 Days #20 tablet 10/18/18 Acetaminophen [Tylenol Tablet] 1,000 mg PO TID PRN tablet 10/22/18 Ibuprofen [Motrin] 400 mg PO Q6H PRN PRN tablet 10/22/18 Meclizine HCl 12.5 - 25 mg PO Q6H PRN PRN #30 tablet 10/22/18 MethylPREDNISolone DosePak [Medrol DosePak] 4 mg PO 0800,1200,1700 #1 tablet 10/22/18 Ondansetron HCl [Zofran] 8 mg PO TID PRN #30 tablet 10/22/18 hydroCHLOROthiazide [Hydrochlorothiazide] 12.5 mg PO DAILY #30 capsule 10/22/18 proMETHazine tablet [Phenergan tablet] 12.5 - 25 mg PO Q6H PRN PRN #20 tablet 10/22/18 The following prescriptions were given: Meclizine HCl 12.5 - 25 mg PO Q6H PRN PRN #30 tablet PRN Reason: Vertigo proMETHazine tablet [Phenergan tablet] 12.5 - 25 mg PO Q6H PRN PRN #20 tablet PRN Reason: nausea, emesis hydroCHLOROthiazide [Hydrochlorothiazide] 12.5 mg PO DAILY #30 capsule MethylPREDNISolone DosePak [Medrol DosePak] 4 mg PO 0800,1200,1700 #1 tablet Ondansetron HCl [Zofran] 8 mg PO TID PRN #30 tablet PRN Reason: nausea/vomiting. Primary Care Physician: Richie Montgomery DO [Primary Care Provider] - Within 2 Weeks Test Results: Test results from this visit will be discussed in further detail at your follow- up appointment, if applicable. Please Follow Up With: Tyson Garcia MD When: 2 weeks. Proposed Discharge Date: 10/22/18
--- NOTE | 2018-10-22 16:35 | PCM.DC.SUM ---
Discharge Date and Diagnosis - Problem List Patient Problems: Active and Suspected Problems (Last Reviewed 10/20/18 @ 13:33 by Balaji Shaver DO) Vertigo (Acute) Date of Admission: 10/20/18 Date of Discharge: 10/22/18 - Primary Discharge Diagnosis Active and Suspected Problems (Last Reviewed 10/20/18 @ 13:33 by Balaji Shaver DO) Vertigo (Acute) - Secondary Discharge Diagnosis Chronic Problems (Last Reviewed 10/20/18 @ 13:33 by Balaji Shaver DO) Cancer of right female breast (Chronic) Hospital Course and Treatment Operations: None Procedures: None Summary of Care Provided: The patient is a 58 year old F presents with vertigo. Patient was admitted to 2 days prior but was still feeling dizzy at that time only to return with symptoms. 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 1. Vertigo Ongoing. Patient reports that she has unchanged, but her symptoms seem to be more pronounced when she was admitted where slight movement made her symptoms. Now, she is able to go to the bathroom without significant duress. I discussed with Dr. Garcia who reiterated much of the same as Dr. Daigle this is possibly M?ni?re's and to continue with current medical therapy at this time and follow-up in the office for audiometry. He did say that if patient is desiring a second opinion that she can be transferred to another facility where they can more thoroughly evaluate her in the hospital release provide a second opinion in regards to that. He did not have any additional recommendations to add to her therapy. I discussed this with the patient that it would just be attenuation of her current therapy and to follow-up with ENT. I did offer the patient the opportunity to be transferred to another facility for evaluation but she thought about and then declined it but I also did inform her that if I do tend to transfer I do have to speak to physician on the other line and explained to them that given her symptoms that she would actually a patient I would otherwise discharge but she is unable to tolerate her symptoms at this time. I explained that could lead to denial but also it may be potentially horizontal transfer which may occur because of transportation to the other facility. As mentioned previously, patient declined transfer at this time. I discussed again with Dr. Raymond and she had requested to speak with him and he said that he would call her about her condition. Patient did inquire if this could be a labyrinthitis to his I did discuss with Dr. Raymond and he stated that treatment is the same as what he had Dr. Daigle feel that she may have. And the audiometry would help elucidate if it is M?ni?re's versus labyrinthitis but all of her symptoms could be consistent with either. I will ask for physical therapy to reevaluate and see about if any benefit can be derived from that. Otherwise, I told the patient that if this is a matter of when she feels that her symptoms are to a point where she can go home. I feel the patient needs a lot of reassurance and time to manage expectations.[] Patient Problems: Active and Suspected Problems (Last Reviewed 10/20/18 @ 13:33 by Balaji Shaver DO) Vertigo (Acute) - Physical Exam Vital Signs Temp Pulse Resp BP Pulse Ox 36.6 C 68 16 128/68 H 97 10/22/18 14:40 10/22/18 14:40 10/22/18 14:40 10/22/18 14:40 10/22/18 14:40 Oxygen Delivery Method Room Air Weight: 66.04 kg Body Mass Index (BMI) 23.5 Intake and Output for Last 24 Hours 10/20/18 10/21/18 10/22/18 23:59 23:59 23:59 Intake Total 2021 / 2021 2089 / 2089 Output Total 2100 / 2100 1800 / 1800 Balance -78 / -78 290 / 290 Discharge Diet: 2000 mg Sodium Diet Discharge Activity: - - activity as tolerated. Do not return to work until dizziness resolveds. Call your doctor if you observe: - - intractable dizziness, intractable nausea/vomiting. Home Medications: Medications to take at Discharge Levothyroxine [Synthroid] 25 mcg PO DAILY 12/11/16 Calcium Carbonate [Calcium] 600 mg PO DAILY 12/30/16 Cholecalciferol (Vitamin D3) [Vitamin D3] 1,000 unit PO DAILY 12/30/16 Diazepam [Valium] 2 mg PO Q6H PRN PRN 5 Days #20 tablet 10/18/18 Acetaminophen [Tylenol Tablet] 1,000 mg PO TID PRN tablet 10/22/18 Ibuprofen [Motrin] 400 mg PO Q6H PRN PRN tablet 10/22/18 Meclizine HCl 12.5 - 25 mg PO Q6H PRN PRN #30 tablet 10/22/18 MethylPREDNISolone DosePak [Medrol DosePak] 4 mg PO 0800,1200,1700 #1 tablet 10/22/18 Ondansetron HCl [Zofran] 8 mg PO TID PRN #30 tablet 10/22/18 hydroCHLOROthiazide [Hydrochlorothiazide] 12.5 mg PO DAILY #30 capsule 10/22/18 proMETHazine tablet [Phenergan tablet] 12.5 - 25 mg PO Q6H PRN PRN #20 tablet 10/22/18 Following Prescrptions Were Given to Patient: Meclizine HCl 12.5 - 25 mg PO Q6H PRN PRN #30 tablet PRN Reason: Vertigo proMETHazine tablet [Phenergan tablet] 12.5 - 25 mg PO Q6H PRN PRN #20 tablet PRN Reason: nausea, emesis hydroCHLOROthiazide [Hydrochlorothiazide] 12.5 mg PO DAILY #30 capsule MethylPREDNISolone DosePak [Medrol DosePak] 4 mg PO 0800,1200,1700 #1 tablet Ondansetron HCl [Zofran] 8 mg PO TID PRN #30 tablet PRN Reason: nausea/vomiting. Primary Care Physician: Richie Montgomery DO [Primary Care Provider] - Within 2 Weeks Please Follow Up With: Tyson Garcia MD When: 2 weeks. Disposition: Home Minutes spent on discharge:: 60 Patient Condition:: Fair Medical Necessity - Tobacco Use Smoking Status: Never smoker Meaningful Use Info Meaningful Use Diagnoses (Choose all that apply): None applicable Code Visit Inpatient E&M: 82998 Disch Hosp
[2018-10-22 17:39] VITALS: BP 118/70; PULSE 72; RESP 16; TEMP 36.7; O2SAT 96
== END 2018-10-22 17:57 | disposition home or self-care (01) ==
LOC: ED 12:30 → MS3 13:16
PROVIDERS: Emergency Provider Emergency Medicine; Family Provider Student in an Organized Health Care Education/Training Program; PCP Student in an Organized Health Care Education/Training Program
DX: R42 Dizziness and giddiness (principal); B02.21 Postherpetic geniculate ganglionitis; H93.13 Tinnitus, bilateral; Z79.899 Other long term (current) drug therapy; Z85.3 Personal history of malignant neoplasm of breast; E04.2 Nontoxic multinodular goiter
CPT/HCPCS: 36415; 80048; 96361; 96372; 96374; 96375; 96376; 97530; 97802; 99218; 99282; J7030; A4216; G0378; J2405

== ENCOUNTER → 2018-11-03 09:00 | Outpatient (CLI) | payer OTHER, SELFPAY ==
[2018-11-03 09:00] VITALS: BMI 23.8
[2018-11-03 09:42] LABS: Hematocrit 46.9 % (37-47); Hemoglobin 15.3 g/dl (12.0-15.0); Mean Corp Hgb Conc 32.6 g/gl (32-36); Mean Platelet Vol. 11.1 fl (6.2-12.0); Platelet Count 178 K/mm3 (150-450); RBC Distribution Width CV 13.5 % (11.6-14.6); Red Blood Count 5.27 M/mm3 (4.2-5.4); White Blood Count 7.9 K/mm3 (4.4-11.0)
[2018-11-03 09:43] LABS: Scan Indicated on CBC? Y/N NO
[2018-11-03 10:27] LABS: ALB/GLOB Ratio 1.1 RATIO (0.9-2.4); AST(SGOT) 13 U/L (15-37); Alanine Aminotransfer ALT/SGPT 28 U/L (13-56); Alkaline Phosphatase 73 U/L (45-117); BUN 12 mg/dL (7-18); BUN/Creat Ratio 14.9 RATIO (10-20); Chloride 105 mmol/L (98-107); EST Glomerular Filtration Rate 78 mL/min (>60); Est Glom Filt Rate - Afr Amer 95 mL/min (>60); Globulin 3.5 g/dL (2.2-4.2); Glucose 90 mg/dL (74-106); Potassium 4.2 mmol/L (3.5-5.1); Protein, Total 7.5 g/dL (6.4-8.2); Sodium Level 143 mmol/L (136-145)
[2018-11-03 10:28] LABS: Anion Gap 10 (5-15); CRP < 2.90 mg/L (0.0-3.0); Thyroid Stim Hormone (TSH) 0.61 uIU/mL (0.358-3.74)
[2018-11-09 10:57] LABS: Lyme IgG P18 Ab Absent (.); Lyme IgG P23 Ab Absent (.); Lyme IgG P28 Ab Absent (.); Lyme IgG P30 Ab Absent (.); Lyme IgG P39 Ab Absent (.); Lyme IgG P41 Ab Absent (.); Lyme IgG P45 Ab Absent (.); Lyme IgG P58 Ab Absent (.); Lyme IgG P66 Ab Absent (.); Lyme IgG P93 Ab Absent (.); Lyme IgM P23 Ab Absent (.); Lyme IgM P39 Ab Absent (.); Lyme IgM P41 Ab Absent (.)
[2018-11-09 15:13] LABS: Arsenic 7245 5 ug/L (2-23); Lyme IgG WB Interpretation Negative (.); Lyme IgM WB Interpretation Negative (.)
== END ==
PROVIDERS: Family Provider Student in an Organized Health Care Education/Training Program; PCP Student in an Organized Health Care Education/Training Program; Referring Provider Student in an Organized Health Care Education/Training Program; Visit Provider Student in an Organized Health Care Education/Training Program
DX: R42 Dizziness and giddiness (principal); R26.89 Other abnormalities of gait and mobility; B02.8 Zoster with other complications; H93.12 Tinnitus, left ear; H91.8X2 Other specified hearing loss, left ear
CPT/HCPCS: 36415; 80053; 82175; 83655; 83825; 84439; 84443; 85027; 86140; 86617

== ENCOUNTER → 2018-11-26 07:57 | Outpatient (CLI) | payer OTHER, SELFPAY ==
[2018-11-20 14:55] VITALS: BMI 23.8
--- NOTE | 2018-11-26 07:59 | US_ITS ---
STUDY: ABDOMINAL ULTRASOUND -left UPPER QUADRANT REASON FOR VISIT: Female, 58 years old. TECHNIQUE: Ultrasound evaluation of the left upper quadrant was performed with real-time and static haas-scale imaging. TECHNICAL QUALITY: Adequate. COMPARISON: None. FINDINGS: Spleen: _The spleen measures 10.3 cm x 3.7 cm x 4.4 cm. Within it, there is a 3.8 cm x 3 cm x 3.8 cm cyst. This also evidence of multiple small rounded areas of increased echotexture suggestive of multiple small hemangiomas. The largest measures 8 mm x 6 mm x 7 mm. US/Spleen IMPRESSION: 3.8 cm x 3 cm x 3.8 cm cyst in the spleen. Findings in keeping with multiple small splenic hemangiomas. Electronically Signed: Jac Eduardo, at 10:48 EDT , Service support ,
--- NOTE | 2018-11-26 07:59 | US_ITS ---
STUDY: THYROID ULTRASOUND REASON FOR EXAM: Female, 58 years old. Thyroid nodules TECHNIQUE: Ultrasound evaluation of the thyroid was performed with real-time and static haas-scale imaging. COMPARISON: January 02, 2015. FINDINGS: RIGHT LOBE: The right lobe of the thyroid gland measures 5.6 x 1.6 x 1.4 cm. There is a homogeneous echotexture. There is a stable 0.8 cm echogenic nodule. There are small cyst measured 0.2 cm. LEFT LOBE: The left lobe of the thyroid gland measures 5.0 x 1.5 x 1.2 cm. There is a homogeneous echotexture. There are at least 4 hypoechoic nodules measuring up to 0.6 cm. ISTHMUS: The isthmus measures 0.2 cm. There is 0.6 cm hypoechoic nodule of the isthmus. The regional lymph nodes are normal. US/Thyroid IMPRESSION: Stable multinodular goiter. Electronically Signed: Damaso Rodrigues MD at 13:46 EDT , Service support ,
== END ==
PROVIDERS: Family Provider Student in an Organized Health Care Education/Training Program; PCP Student in an Organized Health Care Education/Training Program; Referring Provider Surgery; Visit Provider Surgery
DX: D73.4 Cyst of spleen (principal); E04.2 Nontoxic multinodular goiter
CPT/HCPCS: 76536; 76705

== ENCOUNTER → 2018-11-27 11:35 | Outpatient (CLI) | payer OTHER, SELFPAY ==
[2018-11-20 14:55] VITALS: BMI 23.8
[2018-12-01 14:59] LABS: HPV Reflexed? NOT INDICATED
== END ==
PROVIDERS: Family Provider Student in an Organized Health Care Education/Training Program; PCP Student in an Organized Health Care Education/Training Program; Referring Provider Obstetrics & Gynecology; Visit Provider Obstetrics & Gynecology
DX: Z12.4 Encounter for screening for malignant neoplasm of cervix (principal)
CPT/HCPCS: 88175; G0145

== ENCOUNTER 2018-12-03 16:00 | Outpatient (RCR) | payer OTHER, SELFPAY ==
[2018-11-03 09:00] VITALS: BMI 23.8
--- NOTE | 2018-11-06 16:12 | HP.PTEVAL_ITS ---
Patient's Visit Information STEPHANI HAWK is a 58 year old F referred to Physical Therapy by Tyson Garcia MD with a diagnosis of Herpes Zoster virus. Date of Evaluation: 11/06/18 Physical Therapist: Balaji Saavedra, DPT, OCS, CSCS - Visit Plan Frequency: 1-2x /Week Duration: 4-6 Weeks Plan: 1-2x/week x 4-6 weeks... progression of vestibular adapatation and habituation ex and functional acitivity. - Subjective Findings: Vertigo. Had shingles in L ear on Sep 10. Been off work 3 weeks now. 50% better overall. Woke up with inflammed ear on 09/10 and painful, saw Radha and treated with shingles and anti virals. 09/14 got fry louise syndrome of symptoms. MRI was OK, got more powerful steroids. Mid September L facial nerve symptoms resolved. Oct 16 left work and got nausea and vomit and extremely dizzy and could not walk around house safely. ER the next day to PCU and did Catscans and MRI and thought that infection went to inner ear. Did not feel great going home and regressed as she got more vertigo. Admitted 3 days for vertigo to try and keep comfortable. Gave many meds. Saw ENT and got IV steroids. Been off work since Oct 19. Improving symptoms overall. Riding in car is still difficult and has to close eyes. More woozy with riding in car. No more spinning, just woozy constantly. Worse riding in car, head movements, looking up or bending down. Rolling in bed was tough. Avoided grocey stores. Mostly has been at home. Balance was bad in hospital but can get around now. No AD needed. 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 Basic ADLs Ok. Her mom has helped with cooking lately. Hobbies:outdoorsy, gardening, works out at when heatlhy. - Pain BENITEZ Pain Intensity (Out of 10): 1 Pain Intensity Range: 1 Comment: intermittent - Objective Check balance, c/s aROM WFL buit slow and hesitant. - B hallpike palomo adn - roll test. Oculomotor: no nystagmus with gaze or slow head shake. pursuit and saccades are normal. + L head thrust adn VOR makes dizzy 8/10 from 5 baseline for 3 mintues, VOR walking safe but increased woozy immediately. Vertical was similar. Recovered quickly. - skew eye deviation. convergence normal. - Balance Scores Functional Gait Assessment Score: 27 % Disability: 10.0000 CATSIB Score (Max score 120 seconds): 100 - Goals Goal 1:: Return to work withotu increased symptoms Goal Time Frame: 4-6 Weeks Goal 2:: VOR 60 sec horiz adn vetical without symptoms Goal Time Frame: 4-6 Weeks Goal 3:: Walk with head turns confidently adn comfortably Goal Time Frame: 4-6 Weeks Goal 4:: Pt feel 95% back to normal activity including working out at [employer]. Goal Time Frame: 4-6 Weeks - Rehabilitation Potential Physical Therapy Diagnosis: vertigo, likely unilateral vestibular hypofunction. Rehabilitation Potential: Fair - Anticipated Interventions Patient/Client Instruction: Educate patient on: Condition, Plan of Care For the Purpose of:: To increase tolerance to activity/condition/position Comment: adaptation adn habituation and progression of activity. For the Purpose of:: To increase tolerance to activity/condition/position Thank you for the opportunity to evaluate your patient. For Medicare and Medicare HMO plans, please review the plan of care and approve it. It will need to be FAXED BACK to us at [phone] for Medicare purposes. For Medicare only, by signing this I certify the plan of care. Please let me know if there are questions or concerns regarding this plan of care. Physician Signature: Date:
--- NOTE | 2018-12-03 16:31 | HP.PTDCSUM_ITS ---
HP - PT D/C Summary It has been my pleasure to treat STEPHANI HAWK under orders from Tyson Garcia MD, for the diagnosis of Herpes Zoster virus for a total of 4 visit(s). Discharge Date: 12/03/18 Please see the following information for a summary of their discharge status. - Subjective Subjective: Not as faithful with exercises as diagonals sometimes bother neck. Everything seems good. Back to 85% better. Still gets tired easy. Activities are normal. Been shopping 2x and out to eat a few times. Busy restaurant the first time started to feel iffy but then fine. Taoism went well. Cars getting better. - Pain BENITEZ Pain Intensity (Out of 10): 0 - Overall Improvement % Improvement: 85 - Objective Objective/Function: No dizzyness able to be ellicited today wiwth VOR walking, VOR vertical, VOR x [address] with spindles or head movements up and down/side to side. PT DOING VERY WELL AND IS WITHOUT BENITEZ OR DIZZY SYMPTOMS LATELY. - Goals Goal 1:: Return to work withotu increased symptoms Goal Progress: Goal Met Goal 2:: VOR 60 sec horiz adn vetical without symptoms Goal Progress: Goal Met Goal 3:: Walk with head turns confidently adn comfortably Goal Progress: Goal Met Goal 4:: Pt feel 95% back to normal activity including working out at . Goal Progress: Progressing - Plan Plan: D/C, TO DOCTOR IN 2 WEEKS. - D/C Information Discharge Comments: dOING VERY WELL AND WILL WEAN BACK TO GENTLE WORKOUTS. OTHERWISE ACTIVITY NORMAL. F/U WITH DOCTOR IN 2 WEEKS. If there are questions or concerns regarding this patient's physical therapy, please feel free to call me at [phone]. Thank you for the referral of this patient. Sincerely, Balaji Saavedra, DPT, OCS, CSCS
== END 2018-12-03 19:00 | disposition home or self-care (01) ==
LOC: PT 16:00
PROVIDERS: Family Provider Student in an Organized Health Care Education/Training Program; PCP Student in an Organized Health Care Education/Training Program; Referring Provider Otolaryngology; Visit Provider Otolaryngology
DX: B02.21 Postherpetic geniculate ganglionitis (principal)
CPT/HCPCS: 97110; 97162; 97530

== ENCOUNTER → 2018-12-28 07:21 | Outpatient (CLI) | payer OTHER, SELFPAY ==
[2018-11-20 14:55] VITALS: BMI 23.8
--- NOTE | 2018-12-28 07:28 | BI_ITS ---
MAMMOGRAPHY - BILATERAL SCREENING REASON FOR EXAM: Female, 58 years old. Routine annual screening examination. PERTINENT HISTORY: Personal history of breast cancer. Prior right lumpectomy and radiation therapy. TECHNIQUE: Digital bilateral breast gorge (3D mammographic acquisition) in the CC and MLO projections. 2-D mediolateral oblique (MLO) and craniocaudad (CC) views of both breasts were obtained. CAD: Full Field Digital Mammography with Computer Added Detection was performed. COMPARISON: Comparison is made with prior study dated December 25, 2017 and December 24, 2016. FINDINGS: Breast Composition: The breasts are heterogeneously dense, which may obscure small masses. There are no dominant masses or suspicious calcifications. Stable architectural distortion due to prior lumpectomy in the deep upper axillary region of the right breast. Residual breast deformity and overlying skin thickening. There has been essentially no change. No other significant abnormalities are identified. There has been no significant change since the prior study. BI/SCREENING MAMM (CAD), BILAT IMPRESSION: Stable bilateral screening mammogram. Yearly follow-up mammogram recommended. (A) ASSESSMENT CATEGORY: BIRADS Category 2: Benign. A letter regarding these results will be sent to the patient by the facility within 30 days. Approximately 10% of breast cancers are not detected by mammography. A normal mammogram should not delay biopsy of a clinically suspicious abnormality. [id number] Electronically Signed: Jac Eduardo, at 15:14 EDT , Service support ,
== END ==
PROVIDERS: Family Provider Student in an Organized Health Care Education/Training Program; PCP Student in an Organized Health Care Education/Training Program; Referring Provider Internal Medicine Hematology & Oncology; Visit Provider Internal Medicine Hematology & Oncology
DX: Z12.31 Encounter for screening mammogram for malignant neoplasm of breast (principal); Z85.3 Personal history of malignant neoplasm of breast
CPT/HCPCS: 77063; 77067

== ENCOUNTER → 2020-01-03 06:58 | Outpatient (CLI) | payer OTHER, SELFPAY ==
[2019-04-05 12:55] VITALS: BMI 23.5
[2019-12-06 11:12] VITALS: BMI 23.5
--- NOTE | 2020-01-03 06:58 | BI_ITS ---
MAMMOGRAPHY - BILATERAL SCREENING REASON FOR EXAM: Female, 59 years old. Routine annual screening examination. PERTINENT HISTORY: Personal history of breast cancer. Prior right lumpectomy and radiation treatment. TECHNIQUE: Digital bilateral breast ady (3D mammographic acquisition) in the CC and MLO projections. 2-D mediolateral oblique (MLO) and craniocaudad (CC) views of both breasts were obtained. CAD: Full Field Digital Mammography with Computer Added Detection was performed. COMPARISON: Comparison is made with prior examination dated December 28, 2018 and December 25, 2017. FINDINGS: Breast Composition: The breasts are heterogeneously dense, which may obscure small masses. There are no dominant masses or suspicious calcifications. Stable architectural distortion in the deep upper lateral aspect of the right breast and keep with prior lumpectomy. Residual breast deformity with overlying skin thickening. No other significant abnormalities are identified. There has been no significant change since the prior study. BI/SCREEN MAMM (CAD) W/ADY BILAT IMPRESSION: Stable bilateral screening mammogram. Yearly follow-up mammogram recommended. (A) ASSESSMENT CATEGORY: BIRADS Category 2: Benign. A letter regarding these results will be sent to the patient by the facility within 30 days. Approximately 10% of breast cancers are not detected by mammography. A normal mammogram should not delay biopsy of a clinically suspicious abnormality. [id number] Electronically Signed: Jac Eduardo, at 8:27 EDT , Service support ,
== END ==
PROVIDERS: PCP Student in an Organized Health Care Education/Training Program; Referring Provider Internal Medicine Hematology & Oncology; Visit Provider Internal Medicine Hematology & Oncology
DX: Z12.31 Encounter for screening mammogram for malignant neoplasm of breast (principal); Z85.3 Personal history of malignant neoplasm of breast
CPT/HCPCS: 77063; 77067

== ENCOUNTER → 2020-04-11 06:29 | Outpatient (CLI) | payer OTHER, SELFPAY ==
[2020-01-28 07:44] VITALS: BMI 23.3
[2020-04-11 07:23] LABS: Absolute Lymphocyte Count 1.63 X10^3/uL (0.83-4.51); Absolute Neutrophil Count 3.4 X10^3/uL (2.0-7.7); Basophil# 0.05 X10^3/uL; Basophil% 0.9 % (0-1); Eosinophil# 0.07 X10^3/uL; Eosinophils% 1.3 % (0-5); Hematocrit 43.6 % (37-47); Lymphocyte # 1.63 X10^3/ul (4.0); Mean Corp Hgb Conc 32.1 g/dL (32-36); Mean Corpuscular Hgb 29.7 pg (27.0-32.0); Mean Corpuscular Volume 92.6 fL (81-99); Mean Platelet Vol. 10.5 fl (6.2-12.0); Monocyte# 0.28 X10^3/uL; Monocyte% 5.2 % (0-10); NRBC Flagged by Analyzer 0 % (0-5); Neutrophil # 3.38 X10^3/uL (2.7-7.7); Neutrophil % 62.2 % (47-70); Platelet Count 200 K/mm3 (150-450); RBC Distribution Width CV 13.3 % (11.6-14.6); RBC Distribution Width SD 44.9 fl (35.1-43.9); Red Blood Count 4.71 M/mm3 (4.2-5.4); White Blood Count 5.4 K/mm3 (4.4-11.0)
[2020-04-11 08:08] LABS: ALB/GLOB Ratio 1.1 RATIO (0.9-2.4); AST(SGOT) 17 U/L (15-37); Alanine Aminotransfer ALT/SGPT 23 U/L (13-56); Albumin, Serum 3.9 g/dL (3.2-5.0); Alkaline Phosphatase 84 U/L (45-117); Anion Gap 3 (5-15); BUN 14 mg/dL (7-18); BUN/Creat Ratio 16.6 RATIO (10-20); Calcium,Total 8.7 mg/dL (8.5-10.1); Chloride 107 mmol/L (98-107); Cholesterol 174 mg/dL (200); Creatinine, Serum 0.84 mg/dL (0.55-1.02); EST Glomerular Filtration Rate 74 mL/min (>60); Est Glom Filt Rate - Afr Amer 89 mL/min (>60); Globulin 3.6 g/dL (2.2-4.2); Glucose 90 mg/dL (74-106); High Density Lipoprotein 75 mg/dL; Potassium 4.2 mmol/L (3.5-5.1); Protein, Total 7.5 g/dL (6.4-8.2); Sodium Level 139 mmol/L (136-145); T4 Free Direct 1.04 ng/dL (0.76-1.46); Thyroid Stim Hormone (TSH) 1.08 uIU/mL (0.358-3.74); Triglycerides 57 mg/dL; Very Low Density Lipoprotein 11 mg/dL (5-40)
[2020-04-11 08:49] LABS: Hemoglobin A1c 5.4 % (3.8-5.6)
[2020-04-11 09:14] LABS: T3 Total - Triiodothyronine 1.31 ng/mL (0.6-1.81)
== END ==
PROVIDERS: PCP Student in an Organized Health Care Education/Training Program; Referring Provider Nurse Practitioner Family; Visit Provider Nurse Practitioner Family
DX: Z13.1 Encounter for screening for diabetes mellitus (principal); Z13.220 Encounter for screening for lipoid disorders; E03.9 Hypothyroidism, unspecified
CPT/HCPCS: 36415; 80053; 80061; 83036; 84439; 84443; 84480; 85025

== ENCOUNTER → 2021-01-05 07:47 | Outpatient (CLI) | payer OTHER, SELFPAY ==
[2020-06-26 11:16] VITALS: BMI 23.4
[2020-12-26 09:59] VITALS: BMI 23.0
--- NOTE | 2021-01-05 07:47 | BI_ITS ---
MAMMOGRAPHY - BILATERAL SCREENING REASON FOR EXAM: Female, 60 years old. Routine annual screening examination. PERTINENT HISTORY: Personal history of breast cancer. Prior right lumpectomy with radiation therapy. TECHNIQUE: Digital bilateral breast ady (3D mammographic acquisition) in the CC and MLO projections. 2-D mediolateral oblique (MLO) and craniocaudad (CC) views of both breasts were obtained. CAD: Full Field Digital Mammography with Computer Added Detection was performed. COMPARISON: Comparison is made with prior study dated 01/03/2020 and 12/28/2018. FINDINGS: Breast Composition: The breasts are heterogeneously dense, which may obscure small masses. There are no dominant masses or suspicious calcifications. The patient is status post lumpectomy in the deep upper lateral aspect of the right breast with the postoperative scarring. Surgical clips are seen at that site. No other significant abnormalities are identified. There has been no significant change since the prior study. BI/SCRN MAMM (CAD)W/ADY BILAT IMPRESSION: Stable bilateral screening mammogram. Yearly follow-up mammogram recommended. (A) ASSESSMENT CATEGORY: BIRADS Category 2: Benign. A letter regarding these results will be sent to the patient by the facility within 30 days. Approximately 10% of breast cancers are not detected by mammography. A normal mammogram should not delay biopsy of a clinically suspicious abnormality. [id number] Electronically Signed: Jac Eduardo MD at 8:39 EDT , Service support ,
== END ==
PROVIDERS: PCP Student in an Organized Health Care Education/Training Program; Referring Provider Internal Medicine Hematology & Oncology; Visit Provider Internal Medicine Hematology & Oncology
DX: Z12.31 Encounter for screening mammogram for malignant neoplasm of breast (principal); Z85.3 Personal history of malignant neoplasm of breast
CPT/HCPCS: 77063; 77067

== ENCOUNTER → 2021-04-26 09:41 | Outpatient (CLI) | payer OTHER, SELFPAY ==
[2021-02-18 08:53] VITALS: BMI 23.0
[2021-04-26 10:50] LABS: Anion Gap 5 (5-15); BUN 19 mg/dL (7-18); BUN/Creat Ratio 24.1 RATIO (10-20); Chloride 104 mmol/L (98-107); Cholesterol 217 mg/dL (200); Creatinine, Serum 0.79 mg/dL (0.55-1.02); EST Glomerular Filtration Rate 79 mL/min (>60); Est Glom Filt Rate - Afr Amer 96 mL/min (>60); Glucose 88 mg/dL (74-106); High Density Lipoprotein 85 mg/dL; Potassium 4.1 mmol/L (3.5-5.1); Sodium Level 137 mmol/L (136-145); Thyroid Stim Hormone (TSH) 0.69 uIU/mL (0.358-3.74); Triglycerides 56 mg/dL; Very Low Density Lipoprotein 11 mg/dL (5-40)
== END ==
PROVIDERS: PCP Student in an Organized Health Care Education/Training Program; Referring Provider Nurse Practitioner Primary Care; Visit Provider Nurse Practitioner Primary Care
DX: Z00.00 Encounter for general adult medical examination without abnormal findings (principal); Z13.220 Encounter for screening for lipoid disorders; E03.9 Hypothyroidism, unspecified
CPT/HCPCS: 36415; 80048; 80061; 84443

== ENCOUNTER → 2022-01-07 | Outpatient (CLI) | payer BC, OTHER, SELFPAY ==
--- NOTE | 2022-01-07 09:42 | BI_ITS ---
MAMMOGRAPHY - BILATERAL SCREENING 3-D TOMOSYNTHESIS REASON FOR EXAM: Female, 61 years old. Z12.31 - Encounter for screening mammogram for malignant neoplasm of breast PERTINENT HISTORY: No significant family history. TECHNIQUE: 2-D mammograms and 3-D Tomosynthesis of the breast (s) were performed. CAD was performed. COMPARISON: 01/05/2021 FINDINGS: The breast composition is Extermely dense tissue. Scattered benign calcifications are seen. No dense spiculated masses or suspicious microcalcifications are identified. No architectural distortion is identified. There is no skin thickening or retraction. There has been no significant change since the prior study. No change in the lumpectomy changes in the upper outer quadrant of the right breast. BI/SCRN MAMM (CAD)W/ADY BILAT IMPRESSION: No mammographic signs of malignancy. Routine yearly mammograms recommended. ASSESSMENT CATEGORY: BIRADS Category 2: Benign. A letter regarding these results will be sent to the patient by the facility within 30 days. FOLLOW UP RECOMMENDATION: Yearly follow up mammogram recommended. (A) Approximately 10% of breast cancers are not detected by mammography. A normal mammogram should not delay biopsy of a clinically suspicious abnormality. Electronically Signed: Andrews Henriquez MD at 10:51 EDT ,
== END | disposition home or self-care (01) ==
PROVIDERS: PCP Student in an Organized Health Care Education/Training Program; Visit Provider Internal Medicine Hematology & Oncology
DX: Z12.31 Encounter for screening mammogram for malignant neoplasm of breast (principal)
CPT/HCPCS: 77063; 77067

== ENCOUNTER → 2022-11-19 | Outpatient (CLI) | payer OTHER, SELFPAY ==
--- NOTE | 2022-11-19 08:33 | BD_ITS ---
STUDY: DUAL ENERGY X-RAY ABSORPTIOMETRY / DXA REASON FOR EXAM: Female, 62 years old. Z780 TECHNIQUE: Bone Mineral Density (BMD) measurements of lumbar spine and bilateral hips were obtained. COMPARISON: Comparison is made with prior study dated November 12, 2017. FINDINGS: Lumbar Spine (L1-L4): g/cm2 (1.023) / T-score (-0.3) / Z-score (1.2) Findings are suggestive of normal bone density with a low fracture risk. Left Femur Total: g/cm2 (0.962) / T-score (0.2) / Z-score (1.1) Left Femoral Neck: g/cm2 (0.818) / T-score (-0.3) / Z-score (1.0) Right Femur Total: g/cm2 (0.967) / T-score (0.2) / Z-score (1.2) Right Femoral Neck: g/cm2 (0.826) / T-score (-0.2) / Z-score (1.1) The T-Scores on the most recent prior examination were: Lumbar Spine (L1-L4): There has been worsening of bone density since the previous examination. Left Femur Total: which represents a worsening of 3.5%. Right Femur Total: which represents an improvement of 0.7%. BD/Dexa Bone Density Study IMPRESSION: The patient is considered normal as outlined below according to World [place] Organization (WHO) criteria with a low fracture risk. There has been worsening of bone density since the previous examination. Reference Information: The T-score is the number of standard deviations above or below the standard which is normal for young adults at their peak bone mineral density. The World Health Organization (WHO) interprets the T-scores as follows: Above -1 Normal bone density Between -1 and -2.5 Osteopenia Equal to / or below -2.5 Osteoporosis As a practical clinical guideline, osteopenia may be graded as follows: Mild -1 through -1.5 Moderate -1.6 through -2.0 Severe -2.1 through -2.4 The Z-score is the number of standard deviations above or below age-matched controls. A Z-score of less than -1.5 would be considered abnormal. References: 1. NIH Osteoporosis and Related Bone Diseases www osteo.org 2. International Society for Clinical Densitometry www iscd.org 3. National Osteoporosis Foundation www nof.org Electronically Signed: Jac Eduardo MD at 15:06 EST ,
== END | disposition home or self-care (01) ==
PROVIDERS: PCP Student in an Organized Health Care Education/Training Program; Visit Provider Student in an Organized Health Care Education/Training Program
DX: Z78.0 Asymptomatic menopausal state (principal)
CPT/HCPCS: 77080

== ENCOUNTER → 2023-01-14 | Outpatient (CLI) | payer OTHER, SELFPAY ==
--- NOTE | 2023-01-14 07:22 | BI_ITS ---
MAMMOGRAPHY - BILATERAL SCREENING REASON FOR EXAM: Female, 62 years old. Routine annual screening examination. PERTINENT HISTORY: Personal history of breast cancer. History of prior right lumpectomy with radiation treatment. TECHNIQUE: Digital bilateral breast ady (3D mammographic acquisition) in the CC and MLO projections. 2-D mediolateral oblique (MLO) and craniocaudad (CC) views of both breasts were obtained. CAD: Full Field Digital Mammography with Computer Added Detection was performed. COMPARISON: Comparison is made with prior study dated January 07, 2022 and January 05, 2021. FINDINGS: Breast Composition: The breasts are extremely dense, which lowers the sensitivity of mammography. There are no dominant masses or suspicious calcifications. The patient is status post lumpectomy in the deep upper lateral aspect of the right breast with resultant postoperative scarring and breast deformity. There has been no change. No other significant abnormalities are identified. There has been no significant change since the prior study. BI/SCRN MAMM (CAD)W/ADY BILAT IMPRESSION: Stable bilateral screening mammogram. Yearly follow-up mammogram recommended. (A) ASSESSMENT CATEGORY: BIRADS Category 2: Benign. A letter regarding these results will be sent to the patient by the facility within 30 days. Approximately 10% of breast cancers are not detected by mammography. A normal mammogram should not delay biopsy of a clinically suspicious abnormality. [id number] Electronically Signed: Jac Eduardo MD at 8:34 EDT ,
== END | disposition home or self-care (01) ==
LOC: OPBI 07:18
PROVIDERS: PCP Student in an Organized Health Care Education/Training Program; Referring Provider Internal Medicine Hematology & Oncology; Visit Provider Internal Medicine Hematology & Oncology
DX: Z12.31 Encounter for screening mammogram for malignant neoplasm of breast (principal); Z85.3 Personal history of malignant neoplasm of breast; Z92.3 Personal history of irradiation
CPT/HCPCS: 77063; 77067

== ENCOUNTER → 2023-03-06 | Outpatient (CLI) | payer OTHER, SELFPAY ==
--- NOTE | 2023-03-06 10:15 | MRI_ITS ---
STUDY: BILATERAL BREAST MR WITHOUT AND WITH CONTRAST REASON FOR EXAM: Female, 62 years old. History of right breast cancer at age 46 status post lumpectomy and radiation therapy and treatment with tamoxifen for 10 years. Further evaluation because of dense breasts. TECHNIQUE: Multi-sequence multi-echo imaging of both breasts was performed with a dedicated breast coil. T1-weighted and T2-weighted images were performed before the administration of contrast. T1-weighted images were also performed after the intravenous administration of 12ML of CLARISCAN contrast. COMPARISON: Prior mammograms dated December 28, 2018, January 03, 2020, January 05, 2021, January 07, 2022 and January 14, 2023. FINDINGS: RIGHT BREAST: Heterogeneously dense fibroglandular tissue with minimal background enhancement. Postlumpectomy changes in the right breast with decreased volume and minimal deformity. No abnormal enhancing masses or areas of non-mass enhancement in the right breast. LEFT BREAST: Heterogeneously dense fibroglandular tissue with minimal background enhancement. No abnormal enhancing masses or areas of non-mass enhancement in the left breast. Shotty lymph nodes bilaterally with no enlargement. No abnormality in the visualized regions of the chest or liver. MRI/Breast Bilateral W/O and W IMPRESSION: Postlumpectomy changes in the right breast as described. No other abnormality. Follow-up annual mammogram recommended. CATEGORY: BIRADS Category 2: Benign. A letter regarding these results will be sent to the patient by the facility within 30 days. Electronically Signed: Rubio Medrano MD at 9:39 EDT ,
[2023-03-06 10:50] LABS: CREATININE FINGERSTICK < 0.9 mg/dL (0.55-1.02); EGFR FINGERSTICK > 60.0000 mL/min (>60)
== END | disposition home or self-care (01) ==
LOC: MRI 10:13
PROVIDERS: PCP Student in an Organized Health Care Education/Training Program; Referring Provider Surgery; Visit Provider Surgery
DX: R92.2 Inconclusive mammogram (principal)
CPT/HCPCS: 77049; A9575; A4216; C8908

== ENCOUNTER → 2023-06-12 | Outpatient (CLI) | payer OTHER, SELFPAY ==
[2023-06-12 08:48] LABS: Absolute Lymphocyte Count 1.43 X10^3/uL (0.83-4.51); Absolute Neutrophil Count 5.5 X10^3/uL (2.0-7.7); Basophil# 0.04 X10^3/uL; Basophil% 0.5 % (0-1); Eosinophil# 0.02 X10^3/uL; Eosinophils% 0.3 % (0-5); Hematocrit 44.4 % (37-47); Hemoglobin 14.2 g/dL (12.0-15.0); Lymphocyte # 1.43 X10^3/ul (0.83-4.51); Lymphocyte % 19.5 % (19-41); Mean Corpuscular Volume 90.8 fL (81-99); Mean Platelet Vol. 10.1 fl (6.2-12.0); Monocyte% 4.1 % (0-10); NRBC Flagged by Analyzer 0 % (0-5); Neutrophil # 5.53 X10^3/uL (2.7-7.7); Neutrophil % 75.2 % (47-70); Platelet Count 188 K/mm3 (150-450); RBC Distribution Width CV 13.1 % (11.6-14.6); RBC Distribution Width SD 43.2 fl (35.1-43.9); Red Blood Count 4.89 M/mm3 (4.2-5.4); White Blood Count 7.4 K/mm3 (4.4-11.0)
[2023-06-12 09:17] LABS: ALB/GLOB Ratio 1.2 RATIO (0.9-2.4); AST(SGOT) 12 U/L (15-37); Alanine Aminotransfer ALT/SGPT 24 U/L (13-56); Albumin, Serum 4.1 g/dL (3.2-5.0); Alkaline Phosphatase 64 U/L (45-117); Anion Gap 3 (5-15); BUN 16 mg/dL (7-18); BUN/Creat Ratio 19.8 RATIO (10-20); Calcium,Total 8.7 mg/dL (8.5-10.1); Chloride 109 mmol/L (98-107); Cholesterol 211 mg/dL (200); Creatinine, Serum 0.81 mg/dL (0.55-1.02); EST Glomerular Filtration Rate 77 mL/min (>60); Est Glom Filt Rate - Afr Amer 93 mL/min (>60); Globulin 3.4 g/dL (2.2-4.2); Glucose 94 mg/dL (74-106); High Density Lipoprotein 83 mg/dL; Protein, Total 7.5 g/dL (6.4-8.2); Sodium Level 140 mmol/L (136-145); Triglycerides 59 mg/dL; Very Low Density Lipoprotein 12 mg/dL (5-40)
[2023-06-12 16:43] LABS: Xtra Tube EP Lab EXTRA TUBE
== END | disposition home or self-care (01) ==
LOC: PAVLAB 08:21
PROVIDERS: PCP Student in an Organized Health Care Education/Training Program; Referring Provider Student in an Organized Health Care Education/Training Program; Visit Provider Student in an Organized Health Care Education/Training Program
DX: Z00.00 Encounter for general adult medical examination without abnormal findings (principal)
CPT/HCPCS: 36415; 80053; 80061; 84443; 85025

== ENCOUNTER 2023-07-04 06:52 | Day surgery (SDC) | payer OTHER, SELFPAY ==
--- NOTE | 2023-07-04 07:03 | PCM.HP.STD ---
[facility] - General General Date of Service: 07/04/23 Chief Complaint: Screening for intestinal cancer [facility] Narrative STEPHANI HAWK, is a 63 F who presents via open access today for screening colonoscopy. Previous examination 2012 was normal. She enjoys excellent health. She has had a remote history of right breast cancer. Patient is feeling dehydrated from her bowel prep. We will provide extra IV fluids preprocedure. [facility] Medical History (Updated 07/01/23 @ 11:51 by Nilam Joshi) Cancer of right female breast Dense breast tissue History of breast cancer History of echocardiogram History of irregular heartbeat History of right breast cancer History of shingles (~10/2018) Kidney stones Mitral valve prolapse Multinodular goiter Multinodular thyroid Non-smoker Post-menopausal Splenic cyst Thyroid disease Wears glasses Home Medications levothyroxine 25 mcg tablet 25 mcg PO DAILY 12/11/16 [History Last Taken 10/20/18] cholecalciferol (vitamin D3) 25 mcg (1,000 unit) capsule 1,000 unit PO DAILY 12/30/16 [History Last Taken 10/19/18] vitamin B complex (B Complex-Vitamin B12 tablet) 1 tab PO DAILY 12/06/19 [History Last Taken Unknown] cavftyvg-ahw-emgno acid 0.4 mg-lycopene 300 mcg-lutein 250 mcg tablet 1 tab PO DAILY 06/26/20 [History Last Taken Unknown] calcium 600 mg capsule 600 mg PO DAILY 07/01/23 [History Last Taken Unknown] Allergy/AdvReac Type Severity Reaction Status Date / Time No Known Allergies Allergy Verified 07/01/23 11:44 Family History Father Family history of hypertension Cancer leukemia Grandmother Cancer pancreas CVA (cerebral vascular accident) Other Family history of cancer Surgical History H/O dilation and curettage History of hysterectomy History of lumpectomy of right breast History of partial mastectomy Social History Smoking Status: Never smoker alcohol intake: current details: social substance use type: does not use caffeine: Yes what type of physical activity do you participate in: walking seatbelt use: always do you feel safe at home: Yes additional social history: - Works at [employer] Constitutional Constitutional: Reports systems reviewed and no addt'l complaints, except as documented Cardiovascular Cardiovascular: Denies chest pain Respiratory/Chest Respiratory/Chest: Denies shortness of breath at rest Gastrointestinal Gastrointestinal: Denies abdominal pain, change in bowel habits, hematochezia or melena Physical Exam Const alert, oriented x3 and no apparent distress General Appearance: cooperative and comfortable Eyes General Eye: normal appearance of both eyes Neck General: normal visual inspection Chest inspection of chest normal Resp Effort and Inspection: able to speak in complete sentences and symmetric chest movement Auscultation: clear to auscultation bilaterally Cardio regular rate and regular rhythm GI soft to palpation, non-tender and non-distended Extremity no calf tenderness Neuro oriented x3 Psych thought process normal Assessment & Plan Assessment/Plan (1) Encounter for screening for malignant neoplasm of colon: PLAN: The patient presents via open access today for screening colonoscopy. She is aware of the technique, benefit, risk, alternatives. She has had an opportunity to ask and have questions answered. We will proceed as noted. Will Caldera M.D., F.A.C.S.
[2023-07-04] MEDS: Lactated Ringers 1,000 ML 15 ML IV (07:13)
[2023-07-04 07:14] VITALS: BP 136/92; PULSE 90; RESP 18; TEMP 36.9; O2SAT 100; BMI 21.4
--- NOTE | 2023-07-04 08:00 | COLBX_PTH ---
PATIENT: STEPHANI HAWK LOC: EN U#:[id number] AGE/SX: 63/F ROOM: RE07/04/[address]: Dr. Will Caldera MD : 1960 BED: DIS: 07/04/2023 SPEC #: [id number] RECD: 07/04/23 10:16 STATUS: KALPANA MADHURI #: [id number] EBONY: 07/04/23 08:[address]: Will Caldera DEPT: SURGICAL PATHOLOGY RECD BY: Latoya Askew ENTERED: 07/04/23 11:11 SP TYPE: COLON BX OTHR DR: Dr. Richie Montgomery DO Tissues: Sigmoid colon biopsy Procedures: Surgery Specimen Level IV HEADER OPERATION: Colonoscopy - open access PRE-OP DIAGNOSIS: Screening TISSUE SUBMITTED: Mid sigmoid biopsy MICROSCOPIC DIAGNOSIS Mid sigmoid, biopsy: A fragment of colonic mucosa, no pathologic diagnosis. BALAJI:angela 07/07/2023 MICROSCOPIC DESCRIPTION Slides are reviewed. GROSS DESCRIPTION Received in fixative is one container labeled with the patient's name and designated mid sigmoid biopsy. The specimen consists of one irregular fragment of light schultz soft tissue that measures 0.3 x 0.2 x 0.1 cm. The specimen is totally submitted in one cassette. / SJ:angela 07/04/2023 TC:1 CPT: 64408
--- NOTE | 2023-07-04 08:14 | OP.COLON_ITS ---
Patient Name: Ellen Ramirez Procedure Date: 07/04/2023 7:46 AM Date of : 1960 Age: 63 Procedure: Colonoscopy Indications: Screening for colorectal malignant neoplasm Providers: Will Caldera MD Medicines: See the Anesthesia note for documentation of the administered medications Patient Profile: Last Colonoscopy: 2012. Complications: No immediate complications. Procedure: Pre-Anesthesia Assessment: - Prior to the procedure, a History and Physical was performed, and patient medications and allergies were reviewed. The patient's tolerance of previous anesthesia was also reviewed. The risks and benefits of the procedure and the sedation options and risks were discussed with the patient. All questions were answered, and informed consent was obtained. Prior Anticoagulants: The patient has taken no anticoagulant or antiplatelet agents. ASA Grade Assessment: I - A normal, healthy patient. After reviewing the risks and benefits, the patient was deemed in satisfactory condition to undergo the procedure. After I obtained informed consent, the scope was passed under direct vision. Throughout the procedure, the patient's blood pressure, pulse, and oxygen saturations were monitored continuously. The colonoscope was introduced through the anus and advanced to the cecum, identified by appendiceal orifice and ileocecal valve. The colonoscopy was performed without difficulty. The patient tolerated the procedure well. The quality of the bowel preparation was good. The ileocecal valve and the appendiceal orifice were photographed. Scope In: 7:53:05 AM Scope Withdrawal Time 0 hours 11 minutes 21 seconds Scope Out: 8:09:37 AM Total Procedure Duration Time 0 hours 16 minutes 32 seconds Findings: Hemorrhoids were found on perianal exam. Multiple diverticula were found in the sigmoid colon and descending colon. Biopsies were taken with a cold forceps for histology. The exam was otherwise without abnormality. Impression: - Hemorrhoids found on perianal exam. - Diverticulosis in the sigmoid colon and in the descending colon. Biopsied a focal area likely a inverted diverticulum - The examination was otherwise normal. Recommendation: - Discharge patient to home. - Resume previous diet. - Continue present medications. - Telephone my office for pathology results in 1 week. - Repeat colonoscopy in 10 years for screening purposes. Procedure Code(s): --- Professional --- 02446, Colonoscopy, flexible; with biopsy, single or multiple Diagnosis Code(s): --- Professional --- Z12.11, Encounter for screening for malignant neoplasm of colon K64.9, Unspecified hemorrhoids K57.30, Diverticulosis of large intestine without perforation or abscess without bleeding CPT copyright 2021 [employer]. All rights reserved. The codes documented in this report are preliminary and upon tool design drafter review may be revised to meet current compliance requirements. Will Caldera MD 07/04/2023 8:14:29 AM This report has been signed electronically. Number of Addenda: 0 Note Initiated On: 07/04/2023 7:46 AM
--- NOTE | 2023-07-04 08:15 | OP.CCLET_ITS ---
07/04/2023 Richie Montgomery [address] [place] [address] Re : Colonoscopy procedure for Ellen Ramirez Dear Dr. Montgomery This procedure was performed on Tuesday, July 04, 2023. My impressions and recommendations are as follows: Impressions : - Hemorrhoids found on perianal exam. - Diverticulosis in the sigmoid colon and in the descending colon. Biopsied a focal area likely a inverted diverticulum - The examination was otherwise normal. Recommendations : - Discharge patient to home. - Resume previous diet. - Continue present medications. - Telephone my office for pathology results in 1 week. - Repeat colonoscopy in 10 years for screening purposes. My findings are described in the full procedure note, which is enclosed. If I can be of further assistance, please feel free to contact me at Doctor phone number(s): Work: . Sincerely, Will Caldera MD 07/04/2023 8:14:29 AM This report has been signed electronically.
[2023-07-04 08:18] VITALS: BP 100/73; BP 136/92; PULSE 87; RESP 16; TEMP 35.9; O2SAT 97
[2023-07-04 08:20] VITALS: BP 136/92; BP 96/72; PULSE 76; RESP 16; O2SAT 97
[2023-07-04 08:25] VITALS: BP 108/69; BP 136/92; PULSE 77; RESP 16; O2SAT 93
[2023-07-04 08:29] VITALS: BP 100/83; BP 136/92; PULSE 72; RESP 16; TEMP 36.2; O2SAT 95
[2023-07-04 08:40] VITALS: BP 136/92
== END 2023-07-04 08:54 | disposition home or self-care (01) ==
LOC: EN 06:53 → AC 06:54
PROVIDERS: PCP Student in an Organized Health Care Education/Training Program; Referring Provider Student in an Organized Health Care Education/Training Program; Visit Provider Surgery
PROC: 0DJD8ZZ Inspection of Lower Intestinal Tract, Via Natural or Artificial Opening Endoscopic (ICD-10-PCS; CPT 45378; principal; 2023-07-04 07:55)
DX: Z12.11 Encounter for screening for malignant neoplasm of colon (principal); K64.9 Unspecified hemorrhoids; K57.30 Diverticulosis of large intestine without perforation or abscess without bleeding; E04.2 Nontoxic multinodular goiter; Z90.11 Acquired absence of right breast and nipple; Z79.899 Other long term (current) drug therapy; Z85.3 Personal history of malignant neoplasm of breast
CPT/HCPCS: 45380; 88305; J7120; J2405

== ENCOUNTER → 2023-07-14 | Outpatient (CLI) | payer OTHER, SELFPAY ==
[2023-07-15 12:09] LABS: Lipoprotein A 51.1 nmol/L (<75.0)
[2023-07-15 18:07] LABS: CHOLESTEROL TOTAL 214 mg/dL (100-199); HDL-C 84 mg/dL (>39); HDL-P TOTAL 41.5 umol/L (>=30.5); INSULIN RESISTANCE SCORE <25 (<=45); LDL SIZE 21.5 nm (>20.5); LDL-C (NIH CALC) 117 mg/dL (0-99); LDL-P 1107 nmol/L (<1000); SMALL LDL-P 222 nmol/L (<=527); TRIGLYCERIDES 73 mg/dL (0-149)
== END | disposition home or self-care (01) ==
PROVIDERS: PCP Student in an Organized Health Care Education/Training Program; Referring Provider Student in an Organized Health Care Education/Training Program; Visit Provider Student in an Organized Health Care Education/Training Program
DX: E78.5 Hyperlipidemia, unspecified (principal)
CPT/HCPCS: 36415; 80061; 83695; 83704

== ENCOUNTER → 2023-07-21 | Outpatient (CLI) | payer OTHER, SELFPAY ==
--- NOTE | 2023-07-21 | LES_PTH ---
PATIENT: STEPHANI HAWK LOC: [facility] U#:[id number] AGE/SX: 63/F ROOM: RE07/21/[address]: Dr. Will Caldera MD : 1960 BED: DIS: 07/21/2023 SPEC #: [id number] RECD: 07/21/23 16:00 STATUS: KALPANA RETori #: [id number] EBONY: 07/21/23 00:[address]: Will Caldera DEPT: SURGICAL PATHOLOGY RECD BY: Gopal Moura ENTERED: 07/23/23 10:09 SP TYPE: Lesion OTHR DR: Dr. Richie Montgomery DO Tissues: Skin of leg, NOS Procedures: Surgery Specimen Level IV Comments: Case delayed due to IT issues. Locked out. HEADER OPERATION: Excision of left thigh mass PRE-OP DIAGNOSIS: Left thigh mass TISSUE SUBMITTED: Left thigh mass MICROSCOPIC DIAGNOSIS Left thigh mass, biopsy: Angiolipoma. SJ: 07/25/2023 MICROSCOPIC DESCRIPTION Slides are reviewed. GROSS DESCRIPTION Received in fixative is one container labeled with the patient name and designated left thigh mass The specimen consists of an ovoid piece of adipose tissue measuring 1 x 0.5 x 0.5 cm, it is bisected and does not reveal areas of hemorrhage, necrosis or cystic degeneration. Also present in the container are two smaller pieces of adipose tissue measuring in aggregate 0.5 x 0.5 x 0.2 cm. The entire specimen is submitted in one cassette. /BALAJI:bradley 07/25/23 TC:1 CPT: 27384
== END | disposition home or self-care (01) ==
LOC: LABSPEC 16:07
PROVIDERS: PCP Student in an Organized Health Care Education/Training Program; Referring Provider Surgery; Visit Provider Surgery
DX: R22.40 Localized swelling, mass and lump, unspecified lower limb (principal)
CPT/HCPCS: 88305

== ENCOUNTER → 2024-01-01 | Outpatient (CLI) | payer OTHER, SELFPAY ==
--- NOTE | 2024-01-01 07:11 | US_ITS ---
STUDY: ABDOMINAL ULTRASOUND - LEFT UPPER QUADRANT REASON FOR EXAM: Female, 63 years old. Splenic cyst. TECHNIQUE: Transabdominal ultrasound was performed with real-time and static haas scale imaging. TECHNICAL QUALITY: Adequate. COMPARISON: Comparison is made with prior study of November 26, 2018. FINDINGS: Spleen: Normal size of the spleen. The spleen measures 10.2 cm x 4.7 cm x 3.9 cm. There is a 3.8 cm x 4 cm x 3.6 cm cyst. This is essentially unchanged. Left Kidney: Normal size of the left kidney. The left kidney measures 12.2 cm x 5 cm x 5 cm. Normal renal cortex. The left cortex measures 1.7 cm. There is no demonstrated renal mass or cyst. There is no left hydronephrosis. US/Spleen IMPRESSION: Stable splenic cyst. Electronically Signed: Jac Eduardo MD at 16:09 EDT ,
--- NOTE | 2024-01-01 07:33 | US_ITS ---
STUDY: THYROID ULTRASOUND REASON FOR EXAM: Female, 63 years old. Monitoring -- THYROID NODULE TECHNIQUE: Ultrasound evaluation of the thyroid was performed with real-time and static haas-scale imaging. COMPARISON: Comparison is made with prior study dated November 26, 2018. FINDINGS: RIGHT LOBE: The right lobe of the thyroid gland measures 5.1 cm x 1.7 cm x 1.2 cm. There is a homogeneous echotexture. There is an 8 mm x 7 mm x 5 mm solid hypoechoic nodule. This is unchanged. LEFT LOBE: The left lobe of the thyroid gland measures 4.6 cm x 1.5 cm x 1.2 cm. There is a homogeneous echotexture. There are multiple subcentimeter hypoechoic nodules in the left lobe of the thyroid. The largest nodule measures 8 mm x 6 mm x 5 mm. There is been essentially no change. ISTHMUS: The isthmus measures 2 mm. The regional lymph nodes are normal. US/Thyroid IMPRESSION: Stable multinodular goiter. Electronically Signed: Jac Eduardo MD at 10:26 EDT ,
== END | disposition home or self-care (01) ==
PROVIDERS: PCP Student in an Organized Health Care Education/Training Program; Referring Provider Surgery; Visit Provider Surgery
DX: D73.4 Cyst of spleen (principal); E04.1 Nontoxic single thyroid nodule
CPT/HCPCS: 76536; 76705

== ENCOUNTER → 2024-01-19 | Outpatient (CLI) | payer OTHER, SELFPAY ==
--- NOTE | 2024-01-19 16:07 | BI_ITS ---
MAMMOGRAPHY - BILATERAL SCREENING REASON FOR EXAM: Female, 63 years old. Routine annual screening examination. PERTINENT HISTORY: Personal history of breast cancer. Prior right lumpectomy with the radiation and tamoxifen treatment. TECHNIQUE: Digital bilateral breast ady (3D mammographic acquisition) in the CC and MLO projections. 2-D mediolateral oblique (MLO) and craniocaudad (CC) views of both breasts were obtained. CAD: Full Field Digital Mammography with Computer Added Detection was performed. COMPARISON: Comparison is made with prior study dated January 14, 2023 and January 07, 2022. FINDINGS: Breast Composition: The breasts are extremely dense, which lowers the sensitivity of mammography. There are no dominant masses or suspicious calcifications. Once again, the patient is status post lumpectomy in the deep upper lateral aspect of the right breast with resultant postoperative scarring and breast deformity. This is unchanged. No other significant abnormalities are identified. There has been no significant change since the prior study. BI/SCRN MAMM (CAD)W/ADY BILAT IMPRESSION: Stable bilateral screening mammogram. Yearly follow-up mammogram recommended. (A) ASSESSMENT CATEGORY: BIRADS Category 2: Benign. A letter regarding these results will be sent to the patient by the facility within 30 days. Approximately 10% of breast cancers are not detected by mammography. A normal mammogram should not delay biopsy of a clinically suspicious abnormality. [id number] Electronically Signed: Jac Eduardo MD at 8:19 EDT ,
== END | disposition home or self-care (01) ==
LOC: OPBI 16:07
PROVIDERS: PCP Student in an Organized Health Care Education/Training Program; Referring Provider Internal Medicine Hematology & Oncology; Visit Provider Internal Medicine Hematology & Oncology
DX: Z12.31 Encounter for screening mammogram for malignant neoplasm of breast (principal)
CPT/HCPCS: 77063; 77067

== ENCOUNTER → 2024-06-28 | Outpatient (CLI) | payer OTHER, SELFPAY ==
[2024-06-28 09:00] LABS: Absolute Lymphocyte Count 2.13 X10^3/uL (0.83-4.51); Absolute Neutrophil Count 3.6 X10^3/uL (2.0-7.7); Basophil# 0.06 X10^3/uL; Eosinophil# 0.04 X10^3/uL; Eosinophils% 0.6 % (0-5); Hematocrit 43.9 % (37-47); Hemoglobin 13.8 g/dL (12.0-15.0); Lymphocyte # 2.13 X10^3/ul (0.83-4.51); Mean Corp Hgb Conc 31.4 g/dL (32-36); Mean Corpuscular Hgb 28.6 pg (27.0-32.0); Mean Corpuscular Volume 91.1 fL (81-99); Mean Platelet Vol. 10.4 fl (6.2-12.0); Monocyte# 0.34 X10^3/uL; Monocyte% 5.4 % (0-10); NRBC Flagged by Analyzer 0 % (0-5); Neutrophil # 3.62 X10^3/uL (2.7-7.7); Neutrophil % 57.7 % (47-70); Platelet Count 210 K/mm3 (150-450); RBC Distribution Width CV 12.8 % (11.6-14.6); RBC Distribution Width SD 42.9 fl (35.1-43.9); Red Blood Count 4.82 M/mm3 (4.2-5.4); White Blood Count 6.3 K/mm3 (4.4-11.0)
[2024-06-28 09:59] LABS: Hemoglobin A1c 5.4 % (3.8-5.6)
[2024-06-28 10:06] LABS: ALB/GLOB Ratio 1.3 RATIO (0.9-2.4); AST(SGOT) 13 U/L (15-37); Alanine Aminotransfer ALT/SGPT 21 U/L (13-56); Albumin, Serum 3.9 g/dL (3.2-5.0); Alkaline Phosphatase 68 U/L (45-117); Anion Gap 7 (5-15); BUN 14 mg/dL (7-18); CRP < 2.90 mg/L (0.0-3.0); Calcium,Total 8.9 mg/dL (8.5-10.1); Chloride 107 mmol/L (98-107); Cholesterol 201 mg/dL (200); Creatinine, Serum 0.78 mg/dL (0.55-1.02); EST Glomerular Filtration Rate 80 mL/min (>60); Est Glom Filt Rate - Afr Amer 96 mL/min (>60); Globulin 3.1 g/dL (2.2-4.2); Glucose 89 mg/dL (74-106); High Density Lipoprotein 84 mg/dL; Potassium 4.3 mmol/L (3.5-5.1); Sodium Level 140 mmol/L (136-145); Thyroid Stim Hormone (TSH) 0.636 uIU/mL (0.358-3.740); Triglycerides 70 mg/dL; Very Low Density Lipoprotein 14 mg/dL (5-40)
== END | disposition home or self-care (01) ==
LOC: LAB 08:32
PROVIDERS: PCP Student in an Organized Health Care Education/Training Program; Referring Provider Student in an Organized Health Care Education/Training Program; Visit Provider Student in an Organized Health Care Education/Training Program
DX: Z00.00 Encounter for general adult medical examination without abnormal findings (principal)
CPT/HCPCS: 36415; 80053; 80061; 82306; 82607; 83036; 84443; 85025; 86140

== ENCOUNTER 2025-01-20 15:17 | Outpatient (CLI) | payer OTHER, SELFPAY ==
--- NOTE | 2025-01-20 15:26 | BI_ITS ---
EXAM: SCRN MAMM (CAD)W/ADY BILAT 01/20/2025 CLINICAL HISTORY: F, Age 64 y/o , ANNUAL SCREENING TECHNIQUE: Bilateral screening digital breast tomosynthesis with 2D and 3D images. Computer aided detection. COMPARISON: Prior exam(s) dated 01/19/2024, 01/14/2023, 01/07/2022. FINDINGS: TISSUE DENSITY: The breast tissue is heterogenously dense, which may obscure small masses. The mammogram demonstrates that the patient has dense breasts. Supplemental screening with whole breast ultrasound or MRI may be considered for further evaluation. Bilateral Breast Mammographic Findings: No significant masses, calcifications or other abnormalities are identified. BI/SCRN MAMM (CAD)W/ADY BILAT IMPRESSION: Right Breast: BIRADS 1 NEGATIVE. Left Breast: BIRADS 1 NEGATIVE. OVERALL FINAL ASSESSMENT: BIRADS 1 NEGATIVE. RECOMMENDATION: Routine annual follow-up in 1 Year A letter with findings and recommendations will be mailed to the patient. Reading Location: [id number]
== END 2025-01-20 23:59 | disposition home or self-care (01) ==
LOC: OPBI 15:24
PROVIDERS: PCP Student in an Organized Health Care Education/Training Program; Referring Provider Internal Medicine Hematology & Oncology; Visit Provider Internal Medicine Hematology & Oncology
DX: Z12.31 Encounter for screening mammogram for malignant neoplasm of breast (principal)
CPT/HCPCS: 77063; 77067

== ENCOUNTER → 2025-06-23 | Outpatient (CLI) | payer OTHER, SELFPAY ==
[2025-06-23 08:09] LABS: Hematocrit 44.9 % (37-47); Hemoglobin 14.6 g/dL (12.0-15.0); Immature Granulocytes Count 0.030 X10^3/uL (0.0-0.0); Mean Corp Hgb Conc 32.5 g/dL (32-36); Mean Corpuscular Volume 88.2 fL (81-99); Mean Platelet Vol. 10.4 fl (6.2-12.0); NRBC Flagged by Analyzer 0 % (0-5); Platelet Count 235 K/mm3 (150-450); RBC Distribution Width CV 12.9 % (11.6-14.6); RBC Distribution Width SD 41.7 fl (35.1-43.9); Red Blood Count 5.09 M/mm3 (4.2-5.4); White Blood Count 6.0 K/mm3 (4.4-11.0)
[2025-06-23 09:15] LABS: AST(SGOT) 20 U/L (<=31); Alanine Aminotransfer ALT/SGPT 18 U/L (<=34); Albumin, Serum 4.6 g/dL (3.4-4.8); Alkaline Phosphatase 69 U/L (35-104); Anion Gap 13 (5-15); BUN 16 mg/dL (4-19); BUN/Creat Ratio 18.7 RATIO (10-20); Calcium,Total 9.2 mg/dL (7.6-11.0); Carbon Dioxide 23.0 mmol/L (21.0-32.0); Chloride 105 mmol/L (98-108); Globulin 2.5 g/dL (2.2-4.2); Glucose 99 mg/dL (70-99); Potassium 4.3 mmol/L (3.3-5.1)
[2025-06-23 09:55] LABS: Cholesterol 201 mg/dL (<=200); Low Density Lipoprotein Calc. 96 mg/dL; Triglycerides 80 mg/dL; Very Low Density Lipoprotein 16 mg/dL (5-40); cholesterol:hdl ratio screen 2.27
[2025-06-23 16:06] LABS: Xtra Tube EP Lab EXTRA TUBE
== END | disposition home or self-care (01) ==
PROVIDERS: PCP Student in an Organized Health Care Education/Training Program; Referring Provider Internal Medicine Hematology & Oncology; Visit Provider Student in an Organized Health Care Education/Training Program
DX: E03.9 Hypothyroidism, unspecified (principal); E78.5 Hyperlipidemia, unspecified
CPT/HCPCS: 36415; 80053; 80061; 84439; 84443; 85025

== ENCOUNTER → 2025-07-26 | Outpatient (CLI) | payer OTHER, SELFPAY ==
--- NOTE | 2025-07-26 10:06 | MRI_ITS ---
PROCEDURE: BREAST BILATERAL W/O AND W 07/26/2025 REASON FOR EXAM: DENSE BREASTS Screening breast MRI TECHNIQUE: Procedure Code: [id number] Modality: MR Procedure: BREAST BILATERAL W/O AND W CONTRAST: Clariscan 13 mL COMPARISON: Prior breast exams were compared FINDINGS: TISSUE DENSITY: The breasts are heterogeneously dense, which may obscure small masses. Background Parenchymal Enhancement: Minimal RIGHT Breast: No suspicious mass or non-mass enhancement. Postsurgical changes in the right breast. LEFT Breast: No suspicious mass or non-mass enhancement. Other Findings: No suspicious axillary or internal mammary lymph nodes. MRI/Breast Bilateral W/O and W IMPRESSION: No MRI evidence of malignancy in either breast. Recommend bilateral annual screening mammography (due in January 2026). Supplemental annual screening with breast MRI in 1 year breast on clinical risk assessment. OVERALL FINAL ASSESSMENT BI-RADS 2: BENIGN RECOMMENDATION: Routine annual follow-up in 1 Year Reading Location: [id number]
== END | disposition home or self-care (01) ==
LOC: MRI 10:02
PROVIDERS: PCP Student in an Organized Health Care Education/Training Program; Referring Provider Internal Medicine Hematology & Oncology; Visit Provider Internal Medicine Hematology & Oncology
DX: R92.2 Inconclusive mammogram (principal); C50.411 Malignant neoplasm of upper-outer quadrant of right female breast; Z17.0 Estrogen receptor positive status [ER+]
CPT/HCPCS: 77049; A9575; C8908

== ENCOUNTER → 2025-08-08 | Outpatient (CLI) | payer OTHER, SELFPAY ==
--- NOTE | 2025-08-08 12:46 | ECHOD_ITS ---
Reason For Study Reason For Study: HYPERTENSION Procedure This was a 2D Doppler, Color Flow transthoracic echocardiogram. Myocardial strain analysis was performed in this exam to aid in the assessment of cardiac function. Exam performed in department. Left Ventricle Normal LV size. The left ventricular ejection fraction is 65 %. Stage 1 diastolic dysfunction. No regional wall motion abnormalities noted. Right Ventricle Normal RV size. Normal systolic function. Atria Normal left atrium. Normal right atrium. Mitral Valve Normal mitral valve. Tricuspid Valve Normal tricuspid valve. Mild (1+) tricuspid valve insufficiency. Pulmonary artery systolic pressure is 30 mmHg. Aortic Valve Normal aortic valve. Trisinus/trileaflet aortic valve. Great Vessels Normal aortic root. The pulmonary artery is normal size. Inferior vena cava collapse with respiration. Pericardium/Pleural No pericardial effusion. MMode/2D Measurements & Calculations LVIDd: 4.4 cm IVSd: 1.0 cm LVOT diam: 1.9 cm LVIDs: 2.8 cm LVPWd: 0.79 cm LVOT area: 3.0 cm2 RVDd: 2.8 cm FS: 35.8 % Ao root diam: 2.9 cm LAV(MOD-bp): 23.3 ml LVAd ap4: 19.6 cm2 LAV(MOD-bp) Indexed: 13.6 ml/m2 LVLd ap4: 6.2 cm LAV(MOD-sp2): 27.2 ml EDV(MOD-sp4): 50.7 ml LAV(MOD-sp4): 18.6 ml EDV(sp4-el): 52.8 ml LVAs ap4: 10.4 cm2 LVLs ap4: 5.3 cm ESV(MOD-sp4): 16.9 ml ESV(sp4-el): 17.3 ml EF(MOD-sp4): 66.6 % EF(sp4-el): 67.2 % SV(MOD-sp4): 33.7 ml SV(MOD-sp2): 29.3 ml LVAd ap2: 19.8 cm2 LVLd ap2: 6.7 cm SI(MOD-sp4): 19.6 ml/m2 SI(MOD-sp2): 17.0 ml/m2 EDV(MOD-sp2): 50.0 ml EDV(sp2-el): 50.0 ml LVAs ap2: 11.5 cm2 LVLs ap2: 5.6 cm ESV(MOD-sp2): 20.7 ml ESV(sp2-el): 20.2 ml EF(MOD-sp2): 58.6 % SV(sp4-el): 35.5 ml Ao sinus diam: 3.[address] Junction: 2.7 cm LA A4 area: 9.8 cm2 LA dimension(2D): 3.0 cm RA A4 area: 7.9 cm2 TAPSE: 1.7 cm Time Measurements MV dec time: 0.22 sec Doppler Measurements & Calculations MV E max erwin: 69.0 cm/sec Lat Peak E' Erwin: 9.9 cm/sec Med Peak E' Erwin: 11.0 cm/sec MV A max erwin: 98.2 cm/sec E/E' lat: 7.0 E/E' med: 6.3 MV E/A: 0.70 Ao V2 max: 130.9 cm/sec LV V1 max: 109.9 cm/sec MV dec slope: 309.9 cm/sec2 Ao max P.9 mmHg LV V1 max P.8 mmHg Ao V2 mean: 102.8 cm/sec LV V1 mean P.5 mmHg Ao mean P.4 mmHg LV V1 mean: 72.7 cm/sec Ao V2 VTI: 26.1 cm LV V1 VTI: 22.2 cm AV (velocity ratio): 0.85 MICHELLE(I,D): 2.5 cm2 MICHELLE(V,D): 2.5 cm2 SV(LVOT): 65.5 ml PA V2 max: 72.1 cm/sec TR max erwin: 250.5 cm/sec TR max P.1 mmHg ECHO/Echo Complete Interpretation Summary Normal LV size. The left ventricular ejection fraction is 65 %. Stage 1 diastolic dysfunction. The global longitudinal strain is normal. The global longitudinal strain = -65 % (normal). Ordering Physician: Richie Montgomery Referring Physician: Richie Montgomery Performed By: Janell Wang RDCS
== END | disposition home or self-care (01) ==
LOC: CVS 12:45
PROVIDERS: PCP Student in an Organized Health Care Education/Training Program; Referring Provider Student in an Organized Health Care Education/Training Program; Visit Provider Student in an Organized Health Care Education/Training Program
DX: I99.8 Other disorder of circulatory system (principal); I07.1 Rheumatic tricuspid insufficiency
CPT/HCPCS: 93306